=== PATIENT | female | born 1955 | race Caucasian/White ===

== ENCOUNTER → 2016-04-12 | Outpatient (CLI) | payer BC, OTHER ==
[2015-11-24 08:55] VITALS: BP 121/70
[~2016-04-12] MED LIST: BREO ELLIPTA 11 EACH IH; CARV3.122 PO; CELE200C PO; CHLO12TA2 PO; DOXY100C2 PO; DULO60CA6 PO; FERR325T58 PO; GABA-586; HYDR-2678 PO; LISI-338 PO; LORA0.5T PO; LORA0.5T96 PO; OMEG1CAP6 PO; OMEP40CA5 PO; ONDA4TAB7 PO; OXYC-250; OXYC1TAB7 PO; PANT40TA3 PO; PANT40TA5 PO; POTA10CA PO; PRED1TAB3 PO; RIVA10TA PO
--- NOTE | 2016-04-12 11:20 | RAD ---
Exam performed: Nuclear medicine PET scan. History: [Right breast cancer, history of lumpectomy. Patient complaining of right shoulder pain radiating to the arm. History of herpes. Abnormal brachial plexus MRI]. Date of service: 04/12/16. Comparison: CT chest with contrast from 11/07/15 and MRI brachial plexus from 12-27. Technique: Patient was injected 12.16 mCi of F-18 FDG intravenously and delayed whole-body images are obtainedCorresponding including both lower extremities. Noncontrast enhanced images are obtained for the purposes of attenuation correction and anatomical correlation. Patient's fasting blood glucose level at the time of injection measures 96.0 mg/dL. Findings: No hypermetabolic activity seen in the brain or neck. Abnormal lymph nodes were seen in the right neck anterior to the proximal right superior artery, however these are not redemonstrated on current exam. No abnormal hypermetabolic lymph nodes are seen in the neck, axilla, hilum or mediastinum. A small partially calcified 1.3 cm nodule in the right middle lobe demonstrates no abnormal hypermetabolic activity. The maximum SUV value in this region measures less than 1.0. The remainder lungs are essentially clear. No abnormal hypermetabolic activity seen in the abdomen or pelvis. Physiological activity in the colon with symmetric excretion via both kidneys. No hypermetabolic retroperitoneal or mesenteric lymph nodes are identified. No abnormal hypermetabolic activity seen in both lower extremities. Symmetrically linear activity seen in both calf region is physiological intramuscular activity. Impression: No abnormal hypermetabolic activity seen in the brain, neck, chest abdomen or pelvis or bilateral lower extremities. Previously seen enlarged lymph nodes along the proximal right subclavian artery appears less prominent and more likely reactive/inflammatory. 1.3 cm probably partially calcified nodule does not demonstrate any hypermetabolic activity
== END | disposition home or self-care (01) ==
LOC: PETSC 07:31
PROVIDERS: ATTEND Psychiatry & Neurology Neurology with Special Qualifications in Child Neurology
DX: B02.29 Other postherpetic nervous system involvement (principal)
CPT/HCPCS: 78815; A9552

== ENCOUNTER → 2016-04-30 | Outpatient (CLI) | payer BC, OTHER ==
[2015-11-24 08:55] VITALS: BP 121/70
--- NOTE | 2016-04-30 17:23 | KCIC ---
Examination: DEXA scan. HISTORY History of postmenopausal, hormonal therapy. COMPARISON None available. FINDINGS The bony density in the lumbar spine is 1.187 grams per centimeter square with a T-score of 1.3 and Z-score of 2.7. The bone mineral density in the left femoral neck is 0.822 grams per centimeters square with a T-score of -1.0 and a Z-score of -0.1. IMPRESSION The bone mineral density in the left femoral neck is osteopenia. Electronically signed by: Sudhakar Menchaca (Apr 30, 2016 17:21:49)
== END | disposition home or self-care (01) ==
LOC: KCIC DEXA 14:06
PROVIDERS: ATTEND Internal Medicine Hematology & Oncology
DX: Z78.0 Asymptomatic menopausal state (principal); M85.80 Other specified disorders of bone density and structure, unspecified site
CPT/HCPCS: 77080

== ENCOUNTER → 2016-06-11 | Outpatient (CLI) | payer BC, OTHER ==
[2015-11-24 08:55] VITALS: BP 121/70
[~2016-06-11] MED LIST changes: +BUPIVACAINE MPF 0.25% 10 ML VIAL. ONE; +IOHEXOL 180 MG/ML 10 ML VIAL. ONE; +OXYC10TA32 PO; +TRAZ50TA15 PO; +methylPREDNISolone ACETATE 40 MG/ML VIAL. ONE; +methylPREDNISolone ACETATE 80 MG/ML VIAL. ONE
--- NOTE | 2016-06-12 03:25 | PAIN ---
DATE OF SERVICE: 06/11/2016 INITIAL CONSULTATION FOR PAIN CLINIC CHIEF COMPLAINT: Right upper extremity pain. HISTORY OF PRESENT ILLNESS: This is a 60-year-old female who presents with history of pain status post a shingles outbreak in 09/10/2015. The patient was diagnosed with breast cancer at that time and underwent mastectomy with axillary node dissection radical mastectomy ____. She reports that the rash has never completely cleared up and is not sure how it was treated initially about 10 months ago. The patient reports that she still has a rash that occurs occasionally with some blistering of the skin, mostly in the posterior aspect of the scapula and into the right upper extremity with pain throughout the posterior aspect of the arm, lateral arm to the elbow on the right side only. The patient reports tingling and shooting pain down into the arm and hand including all the fingers with a tingling sensation overall the fingers, which has a numbness and a vibratory sensation as well. The patient reports no loss of motor function of her right upper extremity, but significant pain, initially was difficult to even for light touch with clothing and so forth, but now is ____ sleeping most of the night, but awakens her from sleep sometimes 3-4 times, can be very painful on the back of the shoulder blade, mostly from the pain with sleeping. The patient reports no symptoms on the left side. No new rash, no new changes. The patient did have MRI scan of her cervical spine showing some degenerative disk disease at C5-C6 and C6-C7 and some mild spondylosis as well, but no other significant pathology in the cervical spine. The patient has seen a neurologist and still follows up with her oncologist as well, who believes she is in remission from cancer at this point. The patient reports the pain is sharp, stabbing and intermittent in intensity, but always present, changes during the day, worse with activity, worse with changing positions, it is radiating into the right arm and hand again with some tingling in the fingers as described. The patient is not having any other therapies at this time. No physical therapies or other treatments. She is taking gabapentin at 600 mg 3 times a day and also OxyContin and oxycodone. She reports the oxycodone helps 7.5 mg immediate release, but the OxyContin is not helping the pain. The patient has also tried Advil and Tylenol, which have not helped either. PAST MEDICAL HISTORY: Significant for breast cancer with chemotherapy in February 2015, status post radical mastectomy on the right, quit smoking 5 years ago, history of gastric ulcers, cardiomyopathy from the chemotherapy. PAST SURGICAL SURGERY: Other surgeries include x 2, sinus surgery, mastectomy and right segmental reconstruction on 01/2016. CURRENT MEDICATIONS: Include gabapentin, OxyContin, oxycodone, pantoprazole, and finasteride. ALLERGIES: The patient has no known drug allergies. FAMILY HISTORY: Significant for cancers and myocardial infarction in her father. SOCIAL HISTORY: The patient does drink alcohol about 3 drinks daily, does not smoke, quit about 5 years ago. She is , lives with her spouse, lives locally. REVIEW OF SYSTEMS: The patient's review of systems is positive for those items mentioned in history of present illness. All systems reviewed and otherwise negative. It is complete, full and well documented on the patient's chart. PHYSICAL EXAMINATION: VITAL SIGNS: The patient's blood pressure is 136/74, pulse 70, respirations 16, temperature 97.9 degrees Fahrenheit. Height is 5 feet, weight is 127 pounds. GENERAL: The patient is awake, alert, oriented, appropriate, very pleasant demeanor. HEENT: Shows normocephalic, atraumatic. Extraocular movements are intact and symmetrical. Oral cavity, mucous membranes are moist and pink. Dentition is intact. NECK: Shows anterior throat supple without palpable lymphadenopathy noted. Swallow reflex is symmetrical. Neck shows full rotational motion of the cervical spine without difficulty including extension and flexion. Right and left lateral rotation past 45 degrees closer to 90 degrees bilaterally without difficulty or pain reported. CHEST: Shows normal with inspection. Previously well-healed surgical scarring is noted in the right. LUNGS: Breath sounds clear to auscultation bilaterally. HEART: Shows S1 and S2 clear. ABDOMEN: Soft, obese, nontender, and nondistended. No palpable organomegaly is noted. No rebound or guarding demonstrated. MUSCULOSKELETAL: Back shows spine grossly in midline. Normal appearing cervical and lordotic curvature, thoracic kyphotic curvature, and lumbar lordotic curvature. No previous scars noted. With inspection of the skin over the right scapular in the suprascapular region, there is some hypopigmentation in the area of the trapezius as well as the suprascapular region with 2-3 areas scabbed lesions, which she reports she has been scratching on the area of the suprascapular region on the right. No active lesions, no active blisters. No active shingles or rash is determined. There are some hypopigmentation on the lateral deltoid, posterior deltoid as well as over the area of the trapezius and the triceps on the right side, but not below the elbow. Again, no erythema, no clubbing, no cyanosis. Upper extremities are otherwise warm and dry to touch, equal in color and appearance. Good capillary refill throughout the upper arm and shoulder on the right and left. Peripheral pulses are 2+ in the radial distribution. Motor exam is strong with 5/5 operations lead strength, biceps and triceps flexion are strong and intact and no loss of strength bilaterally. Shoulder shrug is strong and intact as is abduction of shoulder to 90 degrees without difficulty and without pain reported with resistance. Sharp and dull discrimination is intact over the area of the suprascapular and infrascapular region on the right and left as well as over the anterior, posterior and lateral deltoid, biceps and triceps region on the right side as well as the left is intact without deficits. IMPRESSION: 1. This is a 60-year-old female with history of approximately 10 months shingles outbreak in the right upper extremity with confounding subsequent findings of breast cancer and the patient is undergoing chemotherapy at that time with some peripheral neuropathy from that as well now. 2. MRI scan of cervical spine as noted. PLAN: Options were discussed with the patient and the patient's spouse who accompanies her to visit today including conservative medical management, physical therapy techniques as well as interventional techniques and she would like to try anything possible that may help the pain. We discussed the cervical epidural steroid injection using dilute local anesthetic as well as steroid medication. She would like to proceed with this. Risks were discussed including but not limited to bleeding, infection, possibility of epidural hematoma and subsequent neurologic compromise, dural puncture, headaches, spinal cord and/or nerve damage, side effects of steroid medication and poor results regarding pain control. The patient understands and wishes to proceed. The patient will return to clinic in approximately 2 weeks for followup. She was counseled on return appointment, activity level and side effects to be aware of. DIAGNOSIS: Post-herpetic neuralgia, right cervical distribution. PROCEDURE: Cervical epidural steroid injection using local anesthetic under sterile prep and drape with C-arm fluoroscopic guidance at the C6-C7 level, translaminar approach. MEDICATIONS INJECTED: 120 mg Depo-Medrol plus 5 mL of normal saline and 2.5 mL of 0.25% bupivacaine as well as 2 mL of Isovue for contrast. CONDITION AT DISCHARGE: Stable. The patient tolerated procedure well, had no complications. Other recommendations are to increase the patient's Neurontin to 900 mg t.i.d. as tolerated. Also we will trazodone at 50 mg at bedtime with instructions, side effects to be aware of discussed with the medications. CEDRIC HUSSEIN MD DR: NEHEMIAS/kiley JOB#: [id number] / [id number] CLAUDIA Farrar MD
== END | disposition home or self-care (01) ==
LOC: PNCL 13:05
PROVIDERS: ATTEND Anesthesiology
DX: M47.22 Other spondylosis with radiculopathy, cervical region (principal); B02.29 Other postherpetic nervous system involvement; F41.9 Anxiety disorder, unspecified; K21.9 Gastro-esophageal reflux disease without esophagitis; Z85.3 Personal history of malignant neoplasm of breast; Z87.891 Personal history of nicotine dependence; Z87.11 Personal history of peptic ulcer disease; Z72.89 Other problems related to lifestyle
CPT/HCPCS: 62321; J1030; J1040; J3490

== ENCOUNTER → 2016-06-25 | Outpatient (CLI) | payer BC, OTHER ==
[2015-11-24 08:55] VITALS: BP 121/70
[~2016-06-25] MED LIST changes: -BUPIVACAINE MPF 0.25% 10 ML VIAL. ONE; -POTA10CA PO; +POTASSIUM CHLO10 MEQ PO
--- NOTE | 2016-06-25 10:06 | PAIN ---
DATE OF SERVICE: 06/25/2016 PROGRESS NOTE FOR PAIN CLINIC DIAGNOSES: Cervical radiculopathy with post-herpetic neuralgia, right cervical distribution. HISTORY OF PRESENT ILLNESS: The patient is a 60-year-old female, who returns for followup status post cervical epidural steroid injection x 1. The patient reports about 25% improvement initially the arm is doing much better on the right side, but still has significant pain in the posterior aspect of the right shoulder and the shoulder blade near the trapezius and close to the midline, where she has had some rash, discoloration from her herpes zoster. The patient reports her pain is 6 on a scale of 10, it is fairly constant, sharp at times stabbing and can be severe at times as well. Right side, mostly posterior shoulder blade in the upper aspect on the right. Again, arm doing better, but still significant pain in shoulder. The patient reports no new motor or sensory deficits, no new other complaints. PHYSICAL EXAMINATION: VITAL SIGNS: Today, the patient's blood pressure is 150/98, pulse is 75, respirations 20, temperature is 98.2 degrees Fahrenheit, weight is 123 pounds, height is 5 feet 0 inches. GENERAL: The patient is awake, alert, oriented, appropriate, very pleasant demeanor. HEENT: Head shows normocephalic, atraumatic. Extraocular movements are intact and symmetrical. Oral cavity shows mucous membranes moist and pink. Dentition is intact. NECK: Shows anterior throat supple without palpable lymphadenopathy noted. Swallow reflex is symmetrical. CHEST: Shows normal on inspection. Breath sounds clear to auscultation bilaterally. HEART: Shows S1 and S2 clear. ABDOMEN: Soft, nontender, nondistended. No palpable organomegaly is noted. No rebound or guarding demonstrated. BACK: Shows spine grossly midline. There is some discoloration over the right posterior scapula from previous shingles rash, but very tender even with light touch. There is some minor allodynia over that region as well. EXTREMITIES: Upper extremities showed deep tendon reflexes 2+ in the biceps and triceps tendons. Motor exam is strong with circulation representative strength rated at 5/5 as is biceps and triceps flexion. Options were discussed with the patient. We will proceed with a second cervical epidural steroid injection today with fluoroscopic guidance. Risks were again discussed including, but not limited to bleeding, infection, possibility of epidural hematoma and subsequent neurological compromise, dural puncture, headaches, spinal cord and/or nerve damage, side effects of steroid medication and poor results regarding pain control. The patient understands and wishes to proceed. The patient will return to the clinic in approximately 2 weeks for followup, was counseled on return appointment, activity level and side effects to be aware of. DIAGNOSES: post-herpetic neuralgia, right cervical distribution. PROCEDURE: Cervical epidural steroid injection in translaminar approach at the C6-C7 level using C-arm fluoroscopic guidance under sterile prep and drape using local anesthetic. MEDICATION INJECTED: Depo-Medrol 80 mg plus 5 mL of normal saline and 2 mL of Isovue for contrast. CONDITION AT DISCHARGE: Stable. The patient tolerated procedure well, had no complications. CEDRIC HUSSEIN MD DR: NEHEMIAS/kiley JOB#: [id number] / [id number]
== END | disposition home or self-care (01) ==
LOC: PNCL 07:33
PROVIDERS: ATTEND Anesthesiology
DX: G54.2 Cervical root disorders, not elsewhere classified (principal); K21.9 Gastro-esophageal reflux disease without esophagitis; F41.9 Anxiety disorder, unspecified; Z85.3 Personal history of malignant neoplasm of breast; Z72.89 Other problems related to lifestyle
CPT/HCPCS: 62321; 99214; J1030; J1040

== ENCOUNTER → 2016-07-16 | Outpatient (CLI) | payer BC, OTHER ==
[2015-11-24 08:55] VITALS: BP 121/70
--- NOTE | 2016-07-17 00:11 | PAIN ---
DATE OF SERVICE: 07/16/2016 ____ DIAGNOSIS: Post-herpetic neuralgia, right cervical distribution. HISTORY OF PRESENT ILLNESS: The patient is a 60-year-old female who returns for followup status post cervical epidural steroid injections x 2. The patient reports approximately 75% improvement in the right arm and neck. The patient reports her pain is a 3 on a scale of 10 now. She has been increasing her activity with greater comfort and ease and greater ability, also sleeping well at night. The pain is no longer awakening her from sleep. The patient reports the tingling and stinging pain in her right hand is completely gone. She is quite pleased with her progress thus far. The patient reports no new motor or sensory deficits, no new complaints. PHYSICAL EXAMINATION: VITAL SIGNS: Today, the patient's blood pressure is 163/85, pulse 85, respirations are 18, temperature is 97.9 degrees Fahrenheit. Height is 5 feet 5 inches, weight is 126 pounds. GENERAL: The patient is awake, alert, oriented, appropriate, very pleasant demeanor. HEENT: Shows normocephalic and atraumatic. Extraocular movements are intact and symmetrical. Oral cavity: Mucous membranes moist and pink. Dentition is intact. NECK: Shows anterior throat supple without palpable lymphadenopathy noted. Swallow reflex is symmetrical. CHEST: Shows normal on inspection. Breath sounds are clear to auscultation bilaterally. HEART: Shows S1 and S2 clear. No murmurs auscultated. ABDOMEN: Soft, nontender and nondistended. No palpable organomegaly. There is no rebound or guarding demonstrated. BACK: Shows spine grossly midline. Neck shows full rotational motion of the cervical spine both laterally greater than 45 degrees right and left as well as extension and forward flexion without difficulty. EXTREMITIES: Upper extremities show deep tendon reflexes at 2+ in the biceps and triceps tendons. Motor exam is strong with director of program management strength rated at 5/5 and equal and symmetrical. Options were discussed with the patient and the patient's old chart was reviewed as her current medication regimen updated. Current review of systems updated today as well. We will proceed with a third cervical epidural steroid injection today with fluoroscopic guidance. Risks were again discussed including, but not limited to bleeding, infection, possibility of epidural hematoma, subsequent neurologic compromise, dural puncture, headaches, spinal cord and/or nerve damage, side effects of steroid medication and poor results regarding pain control. The patient understands and wishes to proceed. The patient will return to clinic in approximately 2 weeks for followup. She was counseled on return appointment, activity level and side effects to be aware of. DIAGNOSIS: Post-herpetic neuralgia, right cervical distribution. PROCEDURE: Cervical epidural steroid injection using C-arm fluoroscopic guidance under sterile prep and drape using local anesthetic. MEDICATION INJECTED: 120 mg Depo-Medrol plus 5 mL preservative-free normal saline and 2 mL of Isovue contrast. CONDITION AT DISCHARGE: Stable. The patient tolerated the procedure well, had no complications. CEDRIC HUSSEIN MD DR: NEHEMIAS/kiley JOB#: [id number] / [id number]
== END | disposition home or self-care (01) ==
LOC: PNCL 07:57
PROVIDERS: ATTEND Anesthesiology
DX: M54.12 Radiculopathy, cervical region (principal); B02.29 Other postherpetic nervous system involvement; K21.9 Gastro-esophageal reflux disease without esophagitis; F41.9 Anxiety disorder, unspecified; Z72.89 Other problems related to lifestyle; Z86.69 Personal history of other diseases of the nervous system and sense organs
CPT/HCPCS: 62321; J1030; J1040

== ENCOUNTER → 2016-12-03 | Outpatient (CLI) | payer BC, OTHER ==
[2015-11-24 08:55] VITALS: BP 121/70
[~2016-12-03] MED LIST changes: +ANAS1TAB PO; +DULO20CA PO; -IOHEXOL 180 MG/ML 10 ML VIAL. ONE; +LISI10TA2 PO; -OXYC-250; +OXYC-328; -OXYC10TA32 PO; +OXYC10TA45 PO; +PREG150C PO; -methylPREDNISolone ACETATE 40 MG/ML VIAL. ONE; -methylPREDNISolone ACETATE 80 MG/ML VIAL. ONE
--- NOTE | 2016-12-03 12:20 | PAIN ---
DATE OF SERVICE: 12/03/2016 DATE OF SERVICE: 12/03/2016 DIAGNOSES: 1. Cervical degenerative disk disease with cervical radiculopathy. 2. History of post-herpetic neuralgia, cervical distribution as well. HISTORY OF PRESENT ILLNESS: The patient is a 61-year-old female who returns for followup status post cervical epidural steroid injections x 3, most recently seen on 07/18/2016. The patient did very well with these with about 75%-80% improvement. Pain returning now in the right upper extremity as it was previously. No new outbreak of shingles or rash. The patient with significant degenerative disk disease at the C5-C6 and C6-C7 levels from MRI scan in 12/2015. The patient reports the pain is returning now in the right upper extremity significantly into the shoulder and arm with radiation into the hands and tingling and numbness in the right hand and fingers, especially in the thumb and first finger. The patient reports it can be sharp, tingling, severe at times, worse at night, occasionally, but mostly does not awaken her from sleep. She is wearing a brace on her wrist, which seems to help during the day when she is working. The patient reports it is 7 on a scale of 10 at its worst, is a 5 on average and a 5 at its least, and is a 5 today. The patient reports no new motor or sensory deficits, no new bowel or bladder incontinence or other complaints. PAST MEDICAL HISTORY: Significant for breast cancer with chemotherapy, quit smoking 5 years ago, gastric ulcers, cardiomyopathy. PAST SURGICAL HISTORY: Previous right mastectomy for cancer, also , sinus surgery and segmental reconstruction on the right. CURRENT MEDICATIONS: Well documented and updated on the patient's chart today. ALLERGIES: The patient has no known drug allergies. FAMILY HISTORY: Significant for myocardial infarction and cancers. SOCIAL HISTORY: The patient drinks alcohol about 3 drinks a day, quit smoking 5 years ago, , lives with her spouse and lives locally in [place], [place]. REVIEW OF SYSTEMS: The patient's review of systems is positive for those items mentioned in history of present illness. All systems reviewed and are otherwise negative as well documented on the patient's chart. PHYSICAL EXAMINATION: VITAL SIGNS: The patient's blood pressure is 116/77, pulse is 78, respirations are 18, temperature 98.2 degrees Fahrenheit, height is 5 feet 5 inches, weight is 130 pounds. GENERAL: The patient is awake, alert, oriented, appropriate, very pleasant demeanor. HEENT: Shows normocephalic, atraumatic. Extraocular movements are intact and symmetrical. Oral cavity shows mucous membranes moist and pink. Dentition is intact. NECK: Shows anterior throat supple without palpable lymphadenopathy noted. Swallow reflex is symmetrical. CHEST: Shows normal on inspection. Breath sounds are clear to auscultation bilaterally. Previous surgery is noted on the right from mastectomy. HEART: Shows S1 and S2 clear. ABDOMEN: Soft, nontender, nondistended. No palpable organomegaly, no rebound or guarding demonstrated. BACK: Shows spine grossly in midline. Normal appearing cervical lordotic curvature, thoracic kyphotic curvature, and lumbar lordotic curvature. Cervical paraspinous musculature shows symmetrical on inspection, with palpation shows some [id number] tenderness in the base of the neck on the right side in the superior medial trapezius as well as the inferior cervical paraspinous muscles, but only diffusely tender without significant radiation. No rashes. No lesions are noted. No hyperpigmentation. The patient shows full rotational motion of cervical spine, both laterally as well as extension and flexion without significant pain or difficulty. Upper extremities show deep tendon reflexes 2+ in the biceps and triceps tendons. Motor exam is strong with corporate giving manager strength rated at 5/5 as is biceps and triceps flexion with some mild tenderness with the anterior deltoid and bicep on the right with flexion and extension. Shoulder shrug is strong and intact, but with pain reported, but without loss of strength on the right side in the base of the neck and shoulder only. Peripheral pulses are 2+ radial distribution. No peripheral edema is noted. No clubbing, no cyanosis. PLAN: Options were discussed with the patient and the patient's old chart was reviewed as her current medication regimen updated. Current review of systems updated today as noted. We will proceed with a Medrol Dosepak today with instructions, side effects to be aware of discussed with the medication. The patient will return to clinic in approximately 1 week for a cervical epidural steroid injection. It has not quite been 6 months since her first injection of her last series, but she is getting close to that. She will be eligible in December. We will try Medrol Dosepak in the meantime. The patient will return to clinic in approximately 1 week. We will plan on cervical epidural steroid injection at that time. CEDRIC HUSSEIN MD DR: NEHEMIAS/kiley JOB#: [id number] / [id number]
== END | disposition home or self-care (01) ==
LOC: PNCL 08:43
PROVIDERS: ATTEND Anesthesiology
DX: M50.10 Cervical disc disorder with radiculopathy, unspecified cervical region (principal); B02.29 Other postherpetic nervous system involvement; R20.0 Anesthesia of skin; Z85.3 Personal history of malignant neoplasm of breast; Z87.891 Personal history of nicotine dependence; Z90.11 Acquired absence of right breast and nipple
CPT/HCPCS: 99212

== ENCOUNTER → 2017-08-05 | Outpatient (CLI) | payer BC | END | disposition home or self-care (01) | LOC: PNCL 07:54 | DX: M50.10 Cervical disc disorder with radiculopathy, unspecified cervical region (principal); B02.29 Other postherpetic nervous system involvement; E87.6 Hypokalemia; K21.9 Gastro-esophageal reflux disease without esophagitis | CPT/HCPCS: 99212 ==

== ENCOUNTER 2021-03-14 17:00 | Inpatient (IN) | payer BC, OTHER ==
[~2021-03-14] VITALS: Ht 165.1 cm; Wt 70.0 kg
[~2021-03-14 17:00] MED LIST changes: +CARV3.1210 PO; -CARV3.122 PO; -DOXY100C2 PO; +DOXY100C3 PO; -DULO60CA6 PO; +DULO60CA7 PO; -GABA-586; +GABA300C18; -LISI-338 PO; +LISI10TA16 PO; -LISI10TA2 PO; +LISI5TAB15 PO; -OMEP40CA5 PO; +OMEP40CA7 PO; -OXYC-328; -OXYC10TA45 PO; +OXYC10TA46 PO; +OXYC1TAB22; -PANT40TA3 PO; -PANT40TA5 PO; +PANT40TA77 PO; +POTA10TA12 PO; -POTASSIUM CHLO10 MEQ PO; +TRAZ-118 PO; -TRAZ50TA15 PO
[2021-03-14] MEDS ORDERED: PANTOPRAZOLE IV PUSH 40 MG VIAL. IVP ONE (17:30)
[2021-03-14] MEDS ORDERED: cefTRIAXone IV Push 1 GM VIAL. IVP ONE (17:30)
[2021-03-14 17:32] LABS: BASO % 1 % (0-3); EOS % 0 % (0-3); HEMATOCRIT 16.3 % (36.0-47.0); LYMPH # 1.7 x10^3/uL (1.0-4.8); LYMPH % 22 % (24-48); MEAN CORPUSCULAR HEMOGLOBIN 31 pg (25-35); MEAN CORPUSCULAR HGB CONC 33 g/dL (31-37); MEAN CORPUSCULAR VOLUME 95 fL (79-100); MONO # 0.3 x10^3/uL (0.0-1.1); MONO % 4 % (0-9); NEUT % 74 % (31-73); PLATELET COUNT 388 x10^3/uL (140-400); RED BLOOD COUNT 1.72 x10^6/uL (3.50-5.40); RED CELL DISTRIBUTION WIDTH 13.8 % (11.5-14.5); WHITE BLOOD COUNT 8.1 x10^3/uL (4.0-11.0)
--- NOTE | 2021-03-14 17:34 | ED.ADGEN ---
Past Medical History Past Medical History: Cancer Additional Past Medical Histor: BREAST CANCER,( WITH CURRENT CHEMOTHERAPY) ULCERS Past Surgical History: , Other Additional Past Surgical Histo: bilateral masectomy Smoking Status: Never Smoker Alcohol Use: None Drug Use: None General Adult EDM: Chief Complaint: RECTAL BLEED HPI: HPI: Patient is a 65 year old female coming in from home via EMS for GI bleeding. On EMS arrival patient was hypotensive with a blood pressure of 66/50. History per patient's was that about 5 hours prior to arrival she had an episode of coffee-ground emesis. Patient that is prior to arrival calling EMS was try to go to the bathroom where she had a syncopal episode with convulsions (has been lowered to the ground she did not hit her head). She had a large bowel movement consisting of dark red blood. States she has been complaining of right upper quadrant abdominal pain for the past 4 to 5 days. Was seen by her primary care provider 2 days ago and then 4 days ago. Patient has an appointment for tomorrow morning and she was initially trying to wait it out. Patient states she has a history of prior bleeding ulcer 10 years ago. States she takes omeprazole. Review of Systems: Review of Systems: All other systems within normal limits except for as noted in the HPI Current Medications: Current Medications Medications (Trade) Dose Ordered Sig/Jn Start Time Stop Time Status Last Admin Dose Admin Acetaminophen (Tylenol) 650 mg PRN Q4HRS PRN 03/14/21 18:15 03/15/21 18:14 Ceftriaxone Sodium (Rocephin) 1 gm 1X ONCE 03/14/21 17:30 03/14/21 17:31 DC 03/14/21 17:30 1 GM Info (CONTRAST GIVEN -- Rx MONITORING) 1 each PRN DAILY PRN 03/14/21 18:00 03/16/21 17:59 Iohexol (Omnipaque 300 Mg/ml) 75 ml 1X ONCE 03/14/21 18:00 03/14/21 18:01 DC Morphine Sulfate (Morphine Sulfate) 4 mg PRN Q2HR PRN 03/14/21 18:15 03/15/21 18:14 Ondansetron HCl (Zofran) 4 mg PRN Q8HRS PRN 03/14/21 18:15 03/15/21 18:14 Pantoprazole Sodium (PROTONIX VIAL for IV PUSH) 40 mg 1X ONCE 03/14/21 17:30 03/14/21 17:31 DC 03/14/21 17:30 40 MG Pantoprazole Sodium 80 mg/ Sodium Chloride 100 ml @ 10 mls/hr Q10H 03/14/21 18:00 03/14/21 17:41 10 MLS/HR Sodium Chloride 1,000 ml @ 100 mls/hr Q10H 03/14/21 18:15 03/15/21 18:14 Allergies: Allergies: Allergies Coded Allergies Type Severity Reaction Last Updated Verified No Known Drug Allergies 03/14/21 No Physical Exam: PE: Constitutional: Well developed, well nourished, no acute distress, non-toxic appearance. [] HENT: Normocephalic, atraumatic, bilateral external ears normal, nose normal. [] Eyes: PERRLA, conjunctiva normal, no discharge. [] Neck: No rigidity, supple, no stridor. [] Cardiovascular: Tachycardic, regular rhythm, brisk cap refill [] Lungs & Thorax: Non labored symmetric respirations, no tachypnea or respiratory distress [] Abdomen: Soft, nondistended. Skin: Warm, dry, no erythema, no rash. Pallor and diaphoretic [] Back: Unremarkable Extremities: No deformities, range of motion grossly intact, no lower extremity edema [] Neurologic: Alert and oriented X 3, no focal deficits noted. [] Psychologic: Affect normal, judgement normal, mood normal. [] Current Patient Data: Labs: Laboratory Tests Test 03/14/21 17:05 03/14/21 17:41 White Blood Count 8.1 x10^3/uL (4.0-11.0) Red Blood Count 1.72 x10^6/uL (3.50-5.40) L Hemoglobin 5.4 g/dL (12.0-15.5) *L Hematocrit 16.3 % (36.0-47.0) L Mean Corpuscular Volume 95 fL (79-100) Mean Corpuscular Hemoglobin 31 pg (25-35) Mean Corpuscular Hemoglobin Concent 33 g/dL (31-37) Red Cell Distribution Width 13.8 % (11.5-14.5) Platelet Count 388 x10^3/uL (140-400) Neutrophils (%) (Auto) 74 % (31-73) H Lymphocytes (%) (Auto) 22 % (24-48) L Monocytes (%) (Auto) 4 % (0-9) Eosinophils (%) (Auto) 0 % (0-3) Basophils (%) (Auto) 1 % (0-3) Neutrophils # (Auto) 6.0 x10^3/uL (1.8-7.7) Lymphocytes # (Auto) 1.7 x10^3/uL (1.0-4.8) Monocytes # (Auto) 0.3 x10^3/uL (0.0-1.1) Eosinophils # (Auto) 0.0 x10^3/uL (0.0-0.7) Basophils # (Auto) 0.0 x10^3/uL (0.0-0.2) Prothrombin Time 16.3 SEC (11.7-14.0) H Prothrombin Time INR 1.3 (0.8-1.1) H Sodium Level 145 mmol/L (136-145) Potassium Level 3.7 mmol/L (3.5-5.1) Chloride Level 107 mmol/L (98-107) Carbon Dioxide Level 15 mmol/L (21-32) L Anion Gap 23 (6-14) H Blood Urea Nitrogen 62 mg/dL (7-20) H Creatinine 1.2 mg/dL (0.6-1.0) H Estimated GFR (Cockcroft-Gault) 45.2 BUN/Creatinine Ratio 52 (6-20) H Glucose Level 281 mg/dL (70-99) H Calcium Level 8.4 mg/dL (8.5-10.1) L Magnesium Level 1.9 mg/dL (1.8-2.4) Total Bilirubin 0.1 mg/dL (0.2-1.0) L Aspartate Amino Transferase (AST) 9 U/L (15-37) L Alanine Aminotransferase (ALT) 17 U/L (14-59) Alkaline Phosphatase 21 U/L (46-116) L Troponin I High Sensitivity 45 ng/L (4-50) BF-[id number]-W-Type Natriuretic Peptide 572 pg/mL (0-124) H Total Protein 4.9 g/dL (6.4-8.2) L Albumin 2.2 g/dL (3.4-5.0) L Albumin/Globulin Ratio 0.8 (1.0-1.7) L Lipase 142 U/L (73-393) Ethyl Alcohol Level < 10 mg/dL (0-10) Stool Occult Blood Positive (NEG) Laboratory Tests 03/14/21 17:05 Laboratory Tests 03/14/21 17:05 Vital Signs: Vital Signs Date Time Temp Pulse Resp B/P (MAP) Pulse Ox O2 Delivery O2 Flow Rate FiO2 03/14/21 17:54 101 17 115/58 (77) 100 Room Air 03/14/21 17:40 97.8 97.8 EKG: EKG: Sinus tachycardia, heart rate 100 100s minute, no ST elevation or depression, no ectopy. No intervals. [] Heart Score: C/O Chest Pain: No Risk Factors: Risk Factors: DM, Current or recent (<one month) smoker, HTN, HLP, family hist ory of CAD, obesity. Risk Scores: Score 0 - 3: 2.5% MACE over next 6 weeks - Discharge Home Score 4 - 6: 20.3% MACE over next 6 weeks - Admit for Clinical Observation Score 7 - 10: 72.7% MACE over next 6 weeks - Early Invasive Strategies Radiology/Procedures: Radiology/Procedures: [] Course & Med Decision Making: Course & Med Decision Making Pertinent Labs and Imaging studies reviewed. (See chart for details) Patient emergently transfused uncrossed blood. Consults placed to patient's primary care provider Dr. Blandon, and baking powder mixer Dr. Gomez. Patient's vital signs stabilized with transfusions and fluids. Patient admitted to the ICU [] Total critical care time: 60 The time involved in the performance of separately reportable/billable procedures was not counted toward critical care time. Due to a high probability of clinically significant, life-threatening deterioration the patient required a high level of care to intervene emergently and I personally spent this critical time directly and personally managing the patient. The critical care time included obtaining a history, examination of the patient, assessment of vital signs, ordering and review of studies, arranging urgent treatment with development of a management plan, evaluation of patient's response to treatment, frequent reassessment, and discussions with other providers and/or family members. Riky Disclaimer: Riky Disclaimer: This electronic medical record was generated, in whole or in part, using a voice recognition dictation system. Departure Departure Impression: Primary Impression: GI bleeding Disposition: ADMITTED INPATIENT Admitting Physician: Richy Blandon Condition: CRITICAL Referrals: RICHY BLANDON MD (PCP) ARLENE JAEGER MD Mar 14, 2021 17:34
[2021-03-14 17:35] LABS: HEMOGLOBIN 5.4 g/dL (12.0-15.5)
[2021-03-14 17:38] LABS: PROTHROMBIN TIME PATIENT 16.3 SEC (11.7-14.0)
[2021-03-14 17:39] LABS: CALCIUM 8.4 mg/dL (8.5-10.1); CREATININE 1.2 mg/dL (0.6-1.0); GFR 45.2; POTASSIUM 3.7 mmol/L (3.5-5.1)
[2021-03-14] MEDS: PANTOPRAZOLE SODIUM IV DRIP 80 MG in IV NORMAL SALINE 100ML 100 ML IV SCH (17:41)
[2021-03-14 17:45] LABS: ALBUMIN 2.2 g/dL (3.4-5.0); ALBUMIN/GLOBULIN RATIO 0.8 (1.0-1.7); MAGNESIUM 1.9 mg/dL (1.8-2.4); TOTAL BILIRUBIN 0.1 mg/dL (0.2-1.0); TOTAL PROTEIN 4.9 g/dL (6.4-8.2)
[2021-03-14 17:56] LABS: FECAL OB PT POSITIVE (NEG)
[2021-03-14] MEDS ORDERED: CONTRAST GIVEN. MC PRN ×2 (18:00→18:30)
[2021-03-14] MEDS ORDERED: IOHEXOL 300 MG/ML 100ML VIAL. IV ONE (18:00)
[2021-03-14] MEDS ORDERED: ONDANSETRON PF 4 MG/2 ML VIAL. IVP PRN (18:15)
[2021-03-14] MEDS ORDERED: IV NORMAL SALINE 1000ML BAG 1,000 ML IV ONE ×2 (18:15)
[2021-03-14] MEDS ORDERED: MORPHINE SULFATE 4 MG/ML INJ. IVP PRN (18:15)
[2021-03-14] MEDS ORDERED: ACETAMINOPHEN 325 MG TABLET. PO PRN (18:15)
[2021-03-14] MEDS: IV NORMAL SALINE 1000ML BAG 1,000 ML IV SCH (18:15)
[2021-03-14] MEDS ORDERED: IOHEXOL 350 MG/ML 100 ML VIAL. IV ONE (18:30)
--- NOTE | 2021-03-14 18:36 | RAD ---
Exam: CT of abdomen and pelvis without and with contrast INDICATION: GI bleeding TECHNIQUE: Sequential axial images through the abdomen and pelvis obtained before and after the admin istration of 80 mL of Omni 350 IV contrast. Sagittal and coronal reformatted images were reconstructe d from the axial data and reviewed. Exposure: One or more of the following in the visualized dose reduction techniques were utilized for this examination: 1. Automated exposure control 2. Adjustment of the MA and/or KV according to patient size 3. Use of iterative of reconstructive technique Comparisons: None FINDINGS: Heart size is normal. No pericardial effusion. Visualized lung bases are clear. No pleural effusion. Liver, spleen, gallbladder and adrenals are unremarkable. There is edema predominantly at the pancrea tic head. No pancreatic ductal dilatation. Kidneys a straight symmetric enhancement. No perinephric inflammation or hydronephrosis. No renal or ureteral calculi are identified. Bladder is partially distended and appears thin-walled. Uterus is not enlarged. No abnormal adnexal m ass. Large and small bowel are unremarkable. No abnormal area of arterial extravasation identified intralu minally within the remainder small bowel. Abdominal aorta has normal course and caliber. No enlarged intra-abdominal lymph nodes are identified. No suspicious osseous lesions or acute fractures. IMPRESSION: 1. Findings of acute pancreatitis. 2. No evidence for arterial extravasation identified intraluminally within the bowel. Electronically signed by: Sunil Ortez MD (03/14/2021 6:33 PM) [facility]
[2021-03-14 20:14] VITALS: BP 125/72
[2021-03-14 20:16] VITALS: BP 124/73
[2021-03-14 20:24] VITALS: BP 190/100
[2021-03-14 20:44] LABS: BILIRUBIN,URINE NEGATIVE (NEG); CLARITY,URINE CLEAR; COLOR,URINE YELLOW; NITRITE,URINE NEGATIVE (NEG); PROTEIN,URINE NEGATIVE (NEG-TRACE); UROBILINOGEN,URINE 0.2 mg/dL (0.2 mg/dL)
[2021-03-14] MEDS ORDERED: EPINEPHrine SYRINGE 1 MG/10 ML SYRINGE. ONE (20:49)
[2021-03-14 20:52] LABS: AMPHETAMINE/METHAMPHETAMINE NEG (NEG); BACTERIA,URINE FEW /HPF (0-FEW); BARBITURATES NEG (NEG); BENZODIAZEPINES NEG (NEG); CANNABINOIDS NEG (NEG); COCAINE NEG (NEG); METHADONE NEG (NEG); OPIATES NEG (NEG); PHENCYCLIDINE NEG (NEG)
[2021-03-14] MEDS ORDERED: MIDAZOLAM HCL/PF 5 MG/5 ML VIAL. ONE (21:13)
[2021-03-14] MEDS ORDERED: PROPOFOL 100 ML IV ONE (21:14)
--- NOTE | 2021-03-14 21:17 | PDOC2 ---
CONSULT Date of Consult Date of Consult DATE: 03/14/21 TIME: 21:13 Reason for Consult Reason for Consult: Acute Gi Bleed Past Medical History Cardiovascular: No pertinent hx Pulmonary: No pertinent hx CENTRAL NERVOUS SYSTEM: Other GI: GERD, GI bleed, Peptic Ulcer disease Heme/Onc: Cancer Hepatobiliary: No pertinent hx Psych: Anxiety Musculoskeletal: Other Rheumatologic: No pertinent hx Infectious disease: No pertinent hx Renal/: No pertinent hx Endocrine: No pertinent hx Past Surgical History Past Surgical History: , Other Family History Family History: Cancer, Heart Disease Social History ALCOHOL: occassional Drugs: None Lives: with Family Current Problem List Problem List Problems Medical Problems: (1) GI bleeding Status: Acute Current Medications Current Medications Current Medications Pantoprazole Sodium (PROTONIX VIAL for IV PUSH) 40 mg 1X ONCE IVP Last administered on 03/14/21at 17:30; Start 03/14/21 at 17:30; Stop 03/14/21 at 17:31; Status DC Pantoprazole Sodium 80 mg/ Sodium Chloride 100 ml @ 10 mls/hr Q10H IV Last administered on 03/14/21at 17:41; Start 03/14/21 at 18:00 Ceftriaxone Sodium (Rocephin) 1 gm 1X ONCE IVP Last administered on 03/14/21at 17:30; Start 03/14/21 at 17:30; Stop 03/14/21 at 17:31; Status DC Iohexol (Omnipaque 300 Mg/ml) 75 ml 1X ONCE IV ; Start 03/14/21 at 18:00; Stop 03/14/21 at 18:01; Status DC Info (CONTRAST GIVEN -- Rx MONITORING) 1 each PRN DAILY PRN MC SEE COMMENTS; Start 03/14/21 at 18:00; Stop 03/16/21 at 17:59 Sodium Chloride 1,000 ml @ 1,000 mls/hr 1X ONCE IV Last administered on 03/14/21at 17:10; Start 03/14/21 at 18:15; Stop 03/14/21 at 19:14; Status DC Sodium Chloride 1,000 ml @ 1,000 mls/hr 1X ONCE IV Last administered on 03/14/21at 17:30; Start 03/14/21 at 18:15; Stop 03/14/21 at 19:14; Status DC Ondansetron HCl (Zofran) 4 mg PRN Q8HRS PRN IVP NAUSEA/VOMITING; Start 03/14/21 at 18:15; Stop 03/15/21 at 18:14 Morphine Sulfate (Morphine Sulfate) 4 mg PRN Q2HR PRN IVP PAIN; Start 03/14/21 at 18:15; Stop 03/15/21 at 18:14 Sodium Chloride 1,000 ml @ 100 mls/hr Q10H IV ; Start 03/14/21 at 18:15; Stop 03/15/21 at 18:14 Acetaminophen (Tylenol) 650 mg PRN Q4HRS PRN PO FEVER > 100.3'F; Start 03/14/21 at 18:15; Stop 03/15/21 at 18:14 Iohexol (Omnipaque 350 Mg/ml) 90 ml 1X ONCE IV Last administered on 03/14/21at 18:23; Start 03/14/21 at 18:30; Stop 03/14/21 at 18:31; Status DC Info (CONTRAST GIVEN -- Rx MONITORING) 1 each PRN DAILY PRN MC SEE COMMENTS; Start 03/14/21 at 18:30; Stop 03/16/21 at 18:29 Epinephrine HCl (EPINEPHrine SYRINGE) 1 mg STK-MED ONCE .ROUTE ; Start 03/14/21 at 20:49; Stop 03/14/21 at 20:49; Status DC Active Scripts Active Reported Pantoprazole Sodium 40 Mg Tablet. 1 Tab PO DAILY Cymbalta (Duloxetine Hcl) 20 Mg Capsule. Unknown Dose PO DAILY Lisinopril 10 Mg Tablet 1 Tab PO DAILY Anastrozole 1 Mg Tablet 1 Tab PO DAILY Pantoprazole Sodium 40 Mg Tablet. 40 Mg PO DAILY Allergies Allergies: Coded Allergies: No Known Drug Allergies (Unverified , 03/14/21) Vitals VITALS Vital Signs Date Time Temp Pulse Resp B/P (MAP) Pulse Ox O2 Delivery O2 Flow Rate FiO2 03/14/21 20:24 105 20 100 03/14/21 20:16 98.7 124/73 98.7 03/14/21 19:24 Room Air Labs Labs Laboratory Tests Test 03/14/21 17:05 03/14/21 17:41 03/14/21 18:01 03/14/21 19:52 White Blood Count 8.1 x10^3/uL (4.0-11.0) Red Blood Count 1.72 x10^6/uL (3.50-5.40) Hemoglobin 5.4 g/dL (12.0-15.5) Hematocrit 16.3 % (36.0-47.0) Mean Corpuscular Volume 95 fL (79-100) Mean Corpuscular Hemoglobin 31 pg (25-35) Mean Corpuscular Hemoglobin Concent 33 g/dL (31-37) Red Cell Distribution Width 13.8 % (11.5-14.5) Platelet Count 388 x10^3/uL (140-400) Neutrophils (%) (Auto) 74 % (31-73) Lymphocytes (%) (Auto) 22 % (24-48) Monocytes (%) (Auto) 4 % (0-9) Eosinophils (%) (Auto) 0 % (0-3) Basophils (%) (Auto) 1 % (0-3) Neutrophils # (Auto) 6.0 x10^3/uL (1.8-7.7) Lymphocytes # (Auto) 1.7 x10^3/uL (1.0-4.8) Monocytes # (Auto) 0.3 x10^3/uL (0.0-1.1) Eosinophils # (Auto) 0.0 x10^3/uL (0.0-0.7) Basophils # (Auto) 0.0 x10^3/uL (0.0-0.2) Prothrombin Time 16.3 SEC (11.7-14.0) Prothromb Time International Ratio 1.3 (0.8-1.1) Sodium Level 145 mmol/L (136-145) Potassium Level 3.7 mmol/L (3.5-5.1) Chloride Level 107 mmol/L (98-107) Carbon Dioxide Level 15 mmol/L (21-32) Anion Gap 23 (6-14) Blood Urea Nitrogen 62 mg/dL (7-20) Creatinine 1.2 mg/dL (0.6-1.0) Estimated GFR (Cockcroft-Gault) 45.2 BUN/Creatinine Ratio 52 (6-20) Glucose Level 281 mg/dL (70-99) Calcium Level 8.4 mg/dL (8.5-10.1) Magnesium Level 1.9 mg/dL (1.8-2.4) Total Bilirubin 0.1 mg/dL (0.2-1.0) Aspartate Amino Transf (AST/SGOT) 9 U/L (15-37) Alanine Aminotransferase (ALT/SGPT) 17 U/L (14-59) Alkaline Phosphatase 21 U/L (46-116) Troponin I High Sensitivity 45 ng/L (4-50) PG-Mgi-W-Type Natriuretic Peptide 572 pg/mL (0-124) Total Protein 4.9 g/dL (6.4-8.2) Albumin 2.2 g/dL (3.4-5.0) Albumin/Globulin Ratio 0.8 (1.0-1.7) Lipase 142 U/L (73-393) Ethyl Alcohol Level < 10 mg/dL (0-10) Stool Occult Blood Positive (NEG) SARS-CoV-2 Antigen (Rapid) Negative (NEGATIVE) Urine Collection Type Unknown Urine Color Yellow Urine Clarity Clear Urine pH 6.0 (<5.0-8.0) Urine Specific Banks >=1.030 (1.000-1.030) Urine Protein Negative mg/dL (NEG-TRACE) Urine Glucose (UA) Negative mg/dL (NEG) Urine Ketones (Stick) Negative mg/dL (NEG) Urine Blood Large (NEG) Urine Nitrite Negative (NEG) Urine Bilirubin Negative (NEG) Urine Urobilinogen Dipstick 0.2 mg/dL (0.2 mg/dL) Urine Leukocyte Esterase Negative (NEG) Urine RBC 1-2 /HPF (0-2) Urine WBC 1-4 /HPF (0-4) Urine Squamous Epithelial Cells Few /LPF Urine Bacteria Few /HPF (0-FEW) Urine Opiates Screen Neg (NEG) Urine Methadone Screen Neg (NEG) Urine Barbiturates Neg (NEG) Urine Phencyclidine Screen Neg (NEG) Urine Amphetamine/Methamphetamine Neg (NEG) Urine Benzodiazepines Screen Neg (NEG) Urine Cocaine Screen Neg (NEG) Urine Cannabinoids Screen Neg (NEG) Urine Ethyl Alcohol Neg (NEG) Laboratory Tests Test 03/14/21 17:05 03/14/21 17:41 03/14/21 18:01 03/14/21 19:52 White Blood Count 8.1 x10^3/uL (4.0-11.0) Red Blood Count 1.72 x10^6/uL (3.50-5.40) Hemoglobin 5.4 g/dL (12.0-15.5) Hematocrit 16.3 % (36.0-47.0) Mean Corpuscular Volume 95 fL (79-100) Mean Corpuscular Hemoglobin 31 pg (25-35) Mean Corpuscular Hemoglobin Concent 33 g/dL (31-37) Red Cell Distribution Width 13.8 % (11.5-14.5) Platelet Count 388 x10^3/uL (140-400) Neutrophils (%) (Auto) 74 % (31-73) Lymphocytes (%) (Auto) 22 % (24-48) Monocytes (%) (Auto) 4 % (0-9) Eosinophils (%) (Auto) 0 % (0-3) Basophils (%) (Auto) 1 % (0-3) Neutrophils # (Auto) 6.0 x10^3/uL (1.8-7.7) Lymphocytes # (Auto) 1.7 x10^3/uL (1.0-4.8) Monocytes # (Auto) 0.3 x10^3/uL (0.0-1.1) Eosinophils # (Auto) 0.0 x10^3/uL (0.0-0.7) Basophils # (Auto) 0.0 x10^3/uL (0.0-0.2) Prothrombin Time 16.3 SEC (11.7-14.0) Prothromb Time International Ratio 1.3 (0.8-1.1) Sodium Level 145 mmol/L (136-145) Potassium Level 3.7 mmol/L (3.5-5.1) Chloride Level 107 mmol/L (98-107) Carbon Dioxide Level 15 mmol/L (21-32) Anion Gap 23 (6-14) Blood Urea Nitrogen 62 mg/dL (7-20) Creatinine 1.2 mg/dL (0.6-1.0) Estimated GFR (Cockcroft-Gault) 45.2 BUN/Creatinine Ratio 52 (6-20) Glucose Level 281 mg/dL (70-99) Calcium Level 8.4 mg/dL (8.5-10.1) Magnesium Level 1.9 mg/dL (1.8-2.4) Total Bilirubin 0.1 mg/dL (0.2-1.0) Aspartate Amino Transf (AST/SGOT) 9 U/L (15-37) Alanine Aminotransferase (ALT/SGPT) 17 U/L (14-59) Alkaline Phosphatase 21 U/L (46-116) Troponin I High Sensitivity 45 ng/L (4-50) KT-Xqp-N-Type Natriuretic Peptide 572 pg/mL (0-124) Total Protein 4.9 g/dL (6.4-8.2) Albumin 2.2 g/dL (3.4-5.0) Albumin/Globulin Ratio 0.8 (1.0-1.7) Lipase 142 U/L (73-393) Ethyl Alcohol Level < 10 mg/dL (0-10) Stool Occult Blood Positive (NEG) SARS-CoV-2 Antigen (Rapid) Negative (NEGATIVE) Urine Collection Type Unknown Urine Color Yellow Urine Clarity Clear Urine pH 6.0 (<5.0-8.0) Urine Specific Banks >=1.030 (1.000-1.030) Urine Protein Negative mg/dL (NEG-TRACE) Urine Glucose (UA) Negative mg/dL (NEG) Urine Ketones (Stick) Negative mg/dL (NEG) Urine Blood Large (NEG) Urine Nitrite Negative (NEG) Urine Bilirubin Negative (NEG) Urine Urobilinogen Dipstick 0.2 mg/dL (0.2 mg/dL) Urine Leukocyte Esterase Negative (NEG) Urine RBC 1-2 /HPF (0-2) Urine WBC 1-4 /HPF (0-4) Urine Squamous Epithelial Cells Few /LPF Urine Bacteria Few /HPF (0-FEW) Urine Opiates Screen Neg (NEG) Urine Methadone Screen Neg (NEG) Urine Barbiturates Neg (NEG) Urine Phencyclidine Screen Neg (NEG) Urine Amphetamine/Methamphetamine Neg (NEG) Urine Benzodiazepines Screen Neg (NEG) Urine Cocaine Screen Neg (NEG) Urine Cannabinoids Screen Neg (NEG) Urine Ethyl Alcohol Neg (NEG) Assessment/Plan Assessment/Plan Acute Gi bleed- with severe anemia, syncope. Most likely secondary recurrent PUD with NSAID induced Du likely Plan admit/transfuse to maintain Hg > 8/PPI drip emergent EGD with possible control of bleeding. if unuhelpful, then embolization and/or surgery FUll note dictated TRISHA PULLIAM MD Mar 14, 2021 21:17
[2021-03-14] MEDS: PROPOFOL 100 ML IV PRN (21:20)
--- NOTE | 2021-03-14 21:21 | PDOC4 ---
Operative Note Operative Note EGD Meds propofol per anesthesia Pre-op dx acute blood loss anemia/melen Post-op dx duodenal ulcer with adherent clot with continued bleeding not amenable to clipping/cautery Plan transfusionsal support PPI therpay IR embolization with continued bleeding and increased surgical risks with cardiomyopathya TRISHA PULLIAM MD Mar 14, 2021 21:21
[2021-03-14] MEDS ORDERED: MIDAZOLAM HCL/PF 5 MG/5 ML VIAL. IVP PRN (22:00)
[2021-03-14] MEDS ORDERED: PROPOFOL 10 MG/ML (20ML) VIAL. IV ONE (22:00)
[2021-03-14] MEDS ORDERED: SUCCINYLCHOLINE 200 MG/10 ML VIAL. ONE (22:00)
[2021-03-14] MEDS ORDERED: ETOMIDATE 20 MG/10 ML VIAL. IV ONE (22:00)
[2021-03-14 23:15] LABS: HEMATOCRIT 33.7 % (36.0-47.0); HEMOGLOBIN 11.3 g/dL (12.0-15.5)
[2021-03-14] MEDS ORDERED: fentaNYL PF VIAL 100 MCG/2 ML VIAL ONE (23:23)
[2021-03-14] MEDS ORDERED: 0.9 % SOD CHL for STERILE FIELD 10 ML DISP.SYRIN. ONE ×2 (23:39→23:41)
[2021-03-15] VITALS (9 sets, daily range): BP systolic 84–116; BP diastolic 51–69
[2021-03-15] MEDS ORDERED: fentaNYL PF VIAL 100 MCG/2 ML VIAL IVP ONE
--- NOTE | 2021-03-15 00:34 | RAD ---
EXAM: CHEST ONE VIEW. HISTORY: Line placement. COMPARISON: None. FINDINGS: A frontal view of the chest is obtained. A nasogastric tube has its tip in the distal stoma ch. An endotracheal tube has its tip 5.5 cm above the amelia. There is mild atelectasis or infiltrate in the right base. There is no pneumothorax or pleural effusi on. The heart is not enlarged. IMPRESSION: 1. Mild right basilar atelectasis or infiltrate. Electronically signed by: Flex Calvo MD (03/15/2021 12:31 AM) [facility]
[2021-03-15 00:50] LABS: BASE EXCESS ABG -8 mmol/L (-3-3); HCO3 ABG 17 mmol/L (21-28); PCO2 ABG 34 mmHg (35-46); PO2 ABG 207 mmHg (65-108); SAT O2 ABG 99 % (92-99)
[2021-03-15 00:51] LABS: FIO2 ABG 50
[2021-03-15] MEDS ORDERED: MIDAZOLAM HCL/PF 2 MG/2 ML VIAL. IV ONE (01:30)
[2021-03-15] MEDS: PANTOPRAZOLE SODIUM IV DRIP 80 MG in IV NORMAL SALINE 100ML 100 ML IV SCH ×2 (04:00→16:08)
[2021-03-15] MEDS: IV NORMAL SALINE 1000ML BAG 1,000 ML IV SCH ×2 (04:15→14:15)
[2021-03-15] MEDS ORDERED: fentaNYL HIGH DOSE PCA 55 ML IV PRN (04:30)
--- NOTE | 2021-03-15 04:37 | CONS ---
DATE OF CONSULTATION: 03/14/2021 GI CONSULTATION REASON FOR CONSULTATION: Melena, acute blood loss anemia and syncope. HISTORY OF PRESENT ILLNESS: A 65-year-old female with past medical history significant for breast cancer, status post bilateral mastectomies as well as osteoarthrosis, history of peptic ulcer disease in the past and is admitted to [facility] this evening with acute blood loss anemia. She has been helped in the bathroom by her . She had coffee-ground emesis, subsequently passed a large volume of blood per rectum as well as bright red blood per mouth and became unresponsive. She subsequently was transferred via EMS to the [facility] where she was found to have a hemoglobin of 5.4, blood pressure was 60/40 on admission and is now 124/73 with a pulse of 82, respiratory rate 16. She remains somewhat diaphoretic, but is coherent. Denies any abdominal pain. Does take NSAIDs. Has not had any previous peptic ulcer surgery. Had an ulcer endoscoped, cauterized approximately 10 years ago with acute bleed. Consultation is requested for emergent management and care. PAST MEDICAL HISTORY: Breast cancer and osteoarthrosis. MEDICATIONS: Lisinopril, prednisone as needed. FAMILY AND SOCIAL HISTORY: She does not drink or smoke at this time. FAMILY HISTORY: Noncontributory. REVIEW OF SYSTEMS: Per records. PHYSICAL EXAMINATION: GENERAL: Reveals a pale female. VITAL SIGNS: Temperature 96.7, pulse 82, respiratory rate 16, blood pressure is 124/73. HEENT: Reveals normocephalic, atraumatic head. Pupils and extraocular muscles are not tested. Sclerae are anicteric. NECK: Supple. LUNGS: Clear. CARDIOVASCULAR: Reveals an S1, S2, without S3, S4 or appreciable murmur. ABDOMEN: Reveals a soft abdomen. Normoactive bowel sounds without appreciable hepatosplenomegaly. Epigastric tenderness to deep palpation. EXTREMITIES: Reveals no cyanosis, clubbing or edema. LABORATORY DATA: Hemoglobin 12.4, hematocrit 16.3 pretransfusion, 4 units have been given. White count is 8, platelet count is 368,000. INR is 1.3. Sodium 145, potassium 3.7, chloride 107, BUN is 62, creatinine 1.2, bicarbonate is 15, glucose is 281, calcium is 8.4, magnesium 1.9, total bilirubin is 0.1, AST of 9, ALT 17, alkaline phosphatase 21, total protein is 4.9, albumin is 2.2, lipase is 145. IMPRESSION AND PLAN: Acute blood loss anemia with NSAID use, previous history of ulcers, syncopal episode, peptic ulcer disease, varices, malignancy with recurrent breast cancer within the stomach or duodenum certainly in the differential; therefore, recommend emergent upper endoscopy. Risks and benefits of the procedure have been discussed with the patient and the spouse via telephone this evening with her increased risk of mortality with cardiomyopathy from her chemotherapy as well as discussed. If endoscopic control of bleeding could not be obtained or she should repeat during her stay then embolization with radiology and/or surgical intervention would be recommended. I would like to thank Dr. Anders for allowing us to consult and participate in this patient's care. Her PPI therapy with 4 units of blood and intubation and emergent upper endoscopy ____. TISH/MIKE/KEEGAN DR: Madiha TID: [id number] CC: ____
--- NOTE | 2021-03-15 04:38 | OP ---
DATE OF SURGERY: 03/14/2021 PROCEDURE PERFORMED: Esophagogastroduodenoscopy. INSTRUMENT USED: ____ scope. PREOPERATIVE DIAGNOSIS: Acute blood loss anemia. POSTOPERATIVE DIAGNOSES: Acute blood loss anemia, duodenal ulcer with adherent clot, unable to be controlled successfully endoscopically. MEDICATIONS RECEIVED: Propofol after intubation. DESCRIPTION OF PROCEDURE: After risks and benefits of procedure were discussed with the patient and the patient's spouse via telephone, emergent upper endoscopy was performed after blood transfusions were given, totaling 4 units. The endoscope was then advanced through the esophagus, stomach, first and second portion of the duodenum. No evidence of ulcer, deformity or stricture within the esophagus. No evidence of varices within the distal GE junction or gastric cardia side. Adhering clot was noted, progressing through the pylorus to the second portion of the duodenum where the ulcer was felt to be. This was washed with both therapeutic scope and a diagnostic scope. The clot could not be removed, but due to the large size of clot and continued oozing around the clot, it was elected to have the patient to undergo embolization. Scope was straightened and withdrawn. The patient tolerated the procedure well. We will recommend the patient to proceed with embolization to further assess and potentially control of bleeding as the patient is a high surgical risk for cardiomyopathy. TISH/RYAN/CIERRA DR: Madiha TID: [id number]
[2021-03-15 06:45] LABS: BASO % 0 % (0-3); EOS % 0 % (0-3); HEMATOCRIT 26.2 % (36.0-47.0); HEMOGLOBIN 9.1 g/dL (12.0-15.5); LYMPH # 1.7 x10^3/uL (1.0-4.8); LYMPH % 19 % (24-48); MEAN CORPUSCULAR HEMOGLOBIN 30 pg (25-35); MEAN CORPUSCULAR HGB CONC 35 g/dL (31-37); MEAN CORPUSCULAR VOLUME 86 fL (79-100); MONO # 0.7 x10^3/uL (0.0-1.1); MONO % 8 % (0-9); NEUT # 6.3 x10^3/uL (1.8-7.7); NEUT % 72 % (31-73); PLATELET COUNT 123 x10^3/uL (140-400); RED BLOOD COUNT 3.05 x10^6/uL (3.50-5.40); RED CELL DISTRIBUTION WIDTH 15.6 % (11.5-14.5); WHITE BLOOD COUNT 8.7 x10^3/uL (4.0-11.0)
[2021-03-15 06:49] LABS: CREATININE 0.7 mg/dL (0.6-1.0); GFR 84.2; POTASSIUM 3.4 mmol/L (3.5-5.1)
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
[2021-03-15] MEDS ORDERED: IOHEXOL 300 MG/ML 100ML VIAL. ONE (08:38)
[2021-03-15] MEDS ORDERED: HEPARIN for ARTERIAL LINE 1,500 ML ONE (08:38)
[2021-03-15] MEDS ORDERED: LIDOCAINE WITH 8.4% SOD BICARB 3 ML DISP.SYRIN. ONE (08:39)
[2021-03-15] MEDS: PROPOFOL 100 ML IV PRN (09:16)
--- NOTE | 2021-03-15 09:32 | PDOC2 ---
INTERV RADIOLOGY CONSULT INPT Date of Consult 03/15/21 Reason for Consult UPPER GI BLEED Referring Physician TRISHA PULLIAM Identification/Chief Complaint Upper GI bleed. Sp endoscopy with duodenal clot, likely ulcer. Initially unstable. Intubated. Now doing better off pressor support. History of Present Illness Reason for Visit 65 year old female with Ho breast cancer presents with severe anemia and hematemesis. Hb 5. Hypotensive. Endoscopy showed adherent clot in duodenum with oozing around clot. No end oscopic intervention was possible. Past Medical History Cardiovascular: No pertinent hx Pulmonary: No pertinent hx GI: Peptic Ulcer disease Heme/Onc: No pertinent hx Hepatobiliary: No pertinent hx Psych: No pertinent hx Rheumatologic: No pertinent hx, Fibromyalgia ENT: No pertinent hx Renal/: No pertinent hx Endocrine: No pertinent hx Dermatology: No pertinent hx Past Surgical History Breast Biopsy, Mastectomy Current Medications Current Medications Pantoprazole Sodium (PROTONIX VIAL for IV PUSH) 40 mg 1X ONCE IVP Last administered on 03/14/21at 17:30; Start 03/14/21 at 17:30; Stop 03/14/21 at 17:31; Status DC Pantoprazole Sodium 80 mg/ Sodium Chloride 100 ml @ 10 mls/hr Q10H IV Last administered on 03/14/21at 17:41; Start 03/14/21 at 18:00; Stop 03/15/21 at 17:59 Ceftriaxone Sodium (Rocephin) 1 gm 1X ONCE IVP Last administered on 03/14/21at 17:30; Start 03/14/21 at 17:30; Stop 03/14/21 at 17:31; Status DC Iohexol (Omnipaque 300 Mg/ml) 75 ml 1X ONCE IV ; Start 03/14/21 at 18:00; Stop 03/14/21 at 18:01; Status DC Info (CONTRAST GIVEN -- Rx MONITORING) 1 each PRN DAILY PRN MC SEE COMMENTS; Start 03/14/21 at 18:00; Stop 03/16/21 at 17:59 Sodium Chloride 1,000 ml @ 1,000 mls/hr 1X ONCE IV Last administered on 03/14/21at 17:10; Start 03/14/21 at 18:15; Stop 03/14/21 at 19:14; Status DC Sodium Chloride 1,000 ml @ 1,000 mls/hr 1X ONCE IV Last administered on 03/14/21at 17:30; Start 03/14/21 at 18:15; Stop 03/14/21 at 19:14; Status DC Ondansetron HCl (Zofran) 4 mg PRN Q8HRS PRN IVP NAUSEA/VOMITING; Start 03/14/21 at 18:15; Stop 03/15/21 at 18:14 Morphine Sulfate (Morphine Sulfate) 4 mg PRN Q2HR PRN IVP PAIN; Start 03/14/21 at 18:15; Stop 03/15/21 at 04:27; Status DC Sodium Chloride 1,000 ml @ 100 mls/hr Q10H IV ; Start 03/14/21 at 18:15; Stop 03/15/21 at 18:14 Acetaminophen (Tylenol) 650 mg PRN Q4HRS PRN PO FEVER > 100.3'F; Start 03/14/21 at 18:15; Stop 03/15/21 at 18:14 Iohexol (Omnipaque 350 Mg/ml) 90 ml 1X ONCE IV Last administered on 03/14/21at 18:23; Start 03/14/21 at 18:30; Stop 03/14/21 at 18:31; Status DC Info (CONTRAST GIVEN -- Rx MONITORING) 1 each PRN DAILY PRN MC SEE COMMENTS; Start 03/14/21 at 18:30; Stop 03/16/21 at 18:29 Epinephrine HCl (EPINEPHrine SYRINGE) 1 mg STK-MED ONCE .ROUTE ; Start 03/14/21 at 20:49; Stop 03/14/21 at 20:49; Status DC Midazolam HCl (Versed) 5 mg STK-MED ONCE .ROUTE ; Start 03/14/21 at 21:13; Stop 03/14/21 at 21:13; Status DC Propofol 100 ml @ As Directed STK-MED ONCE IV ; Start 03/14/21 at 21:14; Stop 03/14/21 at 21:14; Status DC Fentanyl Citrate 30 ml @ 0 mls/hr CONT PRN IV SEE PROTOCOL Last administered on 03/15/21at 03:49; Start 03/14/21 at 22:00; Stop 03/15/21 at 05:00; Status DC Propofol 100 ml @ 1.77 mls/hr CONT PRN IV PER PROTOCOL Last administered on 03/15/21at 09:16; Start 03/14/21 at 22:00 Midazolam HCl (Versed) 2 mg PRN 1X PRN IVP VENT INDUCTION Last administered on 03/14/21at 22:15; Start 03/14/21 at 22:00; Stop 03/14/21 at 22:18; Status DC Fentanyl Citrate (Fentanyl 2ml Vial) 100 mcg STK-MED ONCE .ROUTE ; Start 03/14/21 at 23:23; Stop 03/14/21 at 23:23; Status DC Sodium Chloride (NORMAL SALINE FLUSH for STERILE FIELD) 10 ml STK-MED ONCE .ROUTE ; Start 03/14/21 at 23:39; Stop 03/14/21 at 23:39; Status DC Sodium Chloride (NORMAL SALINE FLUSH for STERILE FIELD) 10 ml STK-MED ONCE .ROUTE ; Start 03/14/21 at 23:41; Stop 03/14/21 at 23:41; Status DC Midazolam HCl (Versed) 2 mg 1X ONCE IV Last administered on 03/15/21at 01:23; Start 03/15/21 at 01:30; Stop 03/15/21 at 01:31; Status DC Fentanyl Citrate (Fentanyl 2ml Vial) 100 mcg 1X ONCE IVP Last administered on 03/15/21at 01:26; Start 03/15/21 at 00:00; Stop 03/15/21 at 01:31; Status DC Fentanyl Citrate 55 ml @ 0 mls/hr CONT PRN PRN IV PAIN CONTROL Last administered on 03/15/21at 04:37; Start 03/15/21 at 04:30 Iohexol (Omnipaque 300 Mg/ml) 100 ml STK-MED ONCE .ROUTE ; Start 03/15/21 at 08:38; Stop 03/15/21 at 08:39; Status DC Heparin Sodium/ Sodium Chloride 1,500 ml @ As Directed STK-MED ONCE .ROUTE ; Start 03/15/21 at 08:38; Stop 03/15/21 at 08:39; Status DC Lidocaine HCl (Buffered Lidocaine 1%) 3 ml STK-MED ONCE .ROUTE ; Start 03/15/21 at 08:39; Stop 03/15/21 at 08:39; Status DC Active Scripts Active Reported Pantoprazole Sodium 40 Mg Tablet.dr 1 Tab PO DAILY Cymbalta (Duloxetine Hcl) 20 Mg Capsule.dr Unknown Dose PO DAILY Lisinopril 10 Mg Tablet 1 Tab PO DAILY Anastrozole 1 Mg Tablet 1 Tab PO DAILY Pantoprazole Sodium 40 Mg Tablet. 40 Mg PO DAILY Allergies Coded Allergies: No Known Drug Allergies (Unverified , 03/14/21) Physical Exam Cardiovascular regular. normal rate. Chest clear bilaterally Mental Status sedated Vascular right common femoral pulse normal . Vitals Vital Signs Date Time Temp Pulse Resp B/P (MAP) Pulse Ox O2 Delivery O2 Flow Rate FiO2 03/15/21 09:17 18 100 Ventilator 03/15/21 06:45 77 100/56 (71) 03/15/21 06:30 97.9 97.9 03/14/21 20:45 2.0 Labs Laboratory Tests Test 03/14/21 17:05 03/14/21 17:41 03/14/21 18:01 03/14/21 19:52 White Blood Count 8.1 x10^3/uL (4.0-11.0) Red Blood Count 1.72 x10^6/uL (3.50-5.40) Hemoglobin 5.4 g/dL (12.0-15.5) Hematocrit 16.3 % (36.0-47.0) Mean Corpuscular Volume 95 fL (79-100) Mean Corpuscular Hemoglobin 31 pg (25-35) Mean Corpuscular Hemoglobin Concent 33 g/dL (31-37) Red Cell Distribution Width 13.8 % (11.5-14.5) Platelet Count 388 x10^3/uL (140-400) Neutrophils (%) (Auto) 74 % (31-73) Lymphocytes (%) (Auto) 22 % (24-48) Monocytes (%) (Auto) 4 % (0-9) Eosinophils (%) (Auto) 0 % (0-3) Basophils (%) (Auto) 1 % (0-3) Neutrophils # (Auto) 6.0 x10^3/uL (1.8-7.7) Lymphocytes # (Auto) 1.7 x10^3/uL (1.0-4.8) Monocytes # (Auto) 0.3 x10^3/uL (0.0-1.1) Eosinophils # (Auto) 0.0 x10^3/uL (0.0-0.7) Basophils # (Auto) 0.0 x10^3/uL (0.0-0.2) Prothrombin Time 16.3 SEC (11.7-14.0) Prothromb Time International Ratio 1.3 (0.8-1.1) Sodium Level 145 mmol/L (136-145) Potassium Level 3.7 mmol/L (3.5-5.1) Chloride Level 107 mmol/L (98-107) Carbon Dioxide Level 15 mmol/L (21-32) Anion Gap 23 (6-14) Blood Urea Nitrogen 62 mg/dL (7-20) Creatinine 1.2 mg/dL (0.6-1.0) Estimated GFR (Cockcroft-Gault) 45.2 BUN/Creatinine Ratio 52 (6-20) Glucose Level 281 mg/dL (70-99) Calcium Level 8.4 mg/dL (8.5-10.1) Magnesium Level 1.9 mg/dL (1.8-2.4) Total Bilirubin 0.1 mg/dL (0.2-1.0) Aspartate Amino Transf (AST/SGOT) 9 U/L (15-37) Alanine Aminotransferase (ALT/SGPT) 17 U/L (14-59) Alkaline Phosphatase 21 U/L (46-116) Troponin I High Sensitivity 45 ng/L (4-50) [id number] Natriuretic Peptide 572 pg/mL (0-124) Total Protein 4.9 g/dL (6.4-8.2) Albumin 2.2 g/dL (3.4-5.0) Albumin/Globulin Ratio 0.8 (1.0-1.7) Lipase 142 U/L (73-393) Ethyl Alcohol Level < 10 mg/dL (0-10) Stool Occult Blood Positive (NEG) SARS-CoV-2 Antigen (Rapid) Negative (NEGATIVE) Urine Collection Type Unknown Urine Color Yellow Urine Clarity Clear Urine pH 6.0 (<5.0-8.0) Urine Specific [place] >=1.030 (1.000-1.030) Urine Protein Negative mg/dL (NEG-TRACE) Urine Glucose (UA) Negative mg/dL (NEG) Urine Ketones (Stick) Negative mg/dL (NEG) Urine Blood Large (NEG) Urine Nitrite Negative (NEG) Urine Bilirubin Negative (NEG) Urine Urobilinogen Dipstick 0.2 mg/dL (0.2 mg/dL) Urine Leukocyte Esterase Negative (NEG) Urine RBC 1-2 /HPF (0-2) Urine WBC 1-4 /HPF (0-4) Urine Squamous Epithelial Cells Few /LPF Urine Bacteria Few /HPF (0-FEW) Urine Opiates Screen Neg (NEG) Urine Methadone Screen Neg (NEG) Urine Barbiturates Neg (NEG) Urine Phencyclidine Screen Neg (NEG) Urine Amphetamine/Methamphetamine Neg (NEG) Urine Benzodiazepines Screen Neg (NEG) Urine Cocaine Screen Neg (NEG) Urine Cannabinoids Screen Neg (NEG) Urine Ethyl Alcohol Neg (NEG) Test 03/14/21 22:05 03/15/21 00:34 03/15/21 00:45 03/15/21 06:10 Hemoglobin 11.3 g/dL (12.0-15.5) 9.1 g/dL (12.0-15.5) Hematocrit 33.7 % (36.0-47.0) 26.2 % (36.0-47.0) Mean Corpuscular Hemoglobin Concent 33 g/dL (31-37) 35 g/dL (31-37) Glucose (Fingerstick) 116 mg/dL (70-99) O2 Saturation 99 % (92-99) Arterial Blood pH 7.32 (7.35-7.45) Arterial Blood pCO2 at Patient Temp 34 mmHg (35-46) Arterial Blood pO2 at Patient Temp 207 mmHg (65-108) Arterial Blood HCO3 17 mmol/L (21-28) Arterial Blood Base Excess -8 mmol/L (-3-3) FiO2 50 White Blood Count 8.7 x10^3/uL (4.0-11.0) Red Blood Count 3.05 x10^6/uL (3.50-5.40) Mean Corpuscular Volume 86 fL (79-100) Mean Corpuscular Hemoglobin 30 pg (25-35) Red Cell Distribution Width 15.6 % (11.5-14.5) Platelet Count 123 x10^3/uL (140-400) Neutrophils (%) (Auto) 72 % (31-73) Lymphocytes (%) (Auto) 19 % (24-48) Monocytes (%) (Auto) 8 % (0-9) Eosinophils (%) (Auto) 0 % (0-3) Basophils (%) (Auto) 0 % (0-3) Neutrophils # (Auto) 6.3 x10^3/uL (1.8-7.7) Lymphocytes # (Auto) 1.7 x10^3/uL (1.0-4.8) Monocytes # (Auto) 0.7 x10^3/uL (0.0-1.1) Eosinophils # (Auto) 0.0 x10^3/uL (0.0-0.7) Basophils # (Auto) 0.0 x10^3/uL (0.0-0.2) Sodium Level 145 mmol/L (136-145) Potassium Level 3.4 mmol/L (3.5-5.1) Chloride Level 113 mmol/L (98-107) Carbon Dioxide Level 24 mmol/L (21-32) Anion Gap 8 (6-14) Blood Urea Nitrogen 45 mg/dL (7-20) Creatinine 0.7 mg/dL (0.6-1.0) Estimated GFR (Cockcroft-Gault) 84.2 Glucose Level 80 mg/dL (70-99) Calcium Level 7.0 mg/dL (8.5-10.1) Laboratory Tests Test 03/14/21 17:05 03/14/21 17:41 03/14/21 18:01 03/14/21 19:52 White Blood Count 8.1 x10^3/uL (4.0-11.0) Red Blood Count 1.72 x10^6/uL (3.50-5.40) Hemoglobin 5.4 g/dL (12.0-15.5) Hematocrit 16.3 % (36.0-47.0) Mean Corpuscular Volume 95 fL (79-100) Mean Corpuscular Hemoglobin 31 pg (25-35) Mean Corpuscular Hemoglobin Concent 33 g/dL (31-37) Red Cell Distribution Width 13.8 % (11.5-14.5) Platelet Count 388 x10^3/uL (140-400) Neutrophils (%) (Auto) 74 % (31-73) Lymphocytes (%) (Auto) 22 % (24-48) Monocytes (%) (Auto) 4 % (0-9) Eosinophils (%) (Auto) 0 % (0-3) Basophils (%) (Auto) 1 % (0-3) Neutrophils # (Auto) 6.0 x10^3/uL (1.8-7.7) Lymphocytes # (Auto) 1.7 x10^3/uL (1.0-4.8) Monocytes # (Auto) 0.3 x10^3/uL (0.0-1.1) Eosinophils # (Auto) 0.0 x10^3/uL (0.0-0.7) Basophils # (Auto) 0.0 x10^3/uL (0.0-0.2) Prothrombin Time 16.3 SEC (11.7-14.0) Prothromb Time International Ratio 1.3 (0.8-1.1) Sodium Level 145 mmol/L (136-145) Potassium Level 3.7 mmol/L (3.5-5.1) Chloride Level 107 mmol/L (98-107) Carbon Dioxide Level 15 mmol/L (21-32) Anion Gap 23 (6-14) Blood Urea Nitrogen 62 mg/dL (7-20) Creatinine 1.2 mg/dL (0.6-1.0) Estimated GFR (Cockcroft-Gault) 45.2 BUN/Creatinine Ratio 52 (6-20) Glucose Level 281 mg/dL (70-99) Calcium Level 8.4 mg/dL (8.5-10.1) Magnesium Level 1.9 mg/dL (1.8-2.4) Total Bilirubin 0.1 mg/dL (0.2-1.0) Aspartate Amino Transf (AST/SGOT) 9 U/L (15-37) Alanine Aminotransferase (ALT/SGPT) 17 U/L (14-59) Alkaline Phosphatase 21 U/L (46-116) Troponin I High Sensitivity 45 ng/L (4-50) [id number]-Type Natriuretic Peptide 572 pg/mL (0-124) Total Protein 4.9 g/dL (6.4-8.2) Albumin 2.2 g/dL (3.4-5.0) Albumin/Globulin Ratio 0.8 (1.0-1.7) Lipase 142 U/L (73-393) Ethyl Alcohol Level < 10 mg/dL (0-10) Stool Occult Blood Positive (NEG) SARS-CoV-2 Antigen (Rapid) Negative (NEGATIVE) Urine Collection Type Unknown Urine Color Yellow Urine Clarity Clear Urine pH 6.0 (<5.0-8.0) Urine Specific [place] >=1.030 (1.000-1.030) Urine Protein Negative mg/dL (NEG-TRACE) Urine Glucose (UA) Negative mg/dL (NEG) Urine Ketones (Stick) Negative mg/dL (NEG) Urine Blood Large (NEG) Urine Nitrite Negative (NEG) Urine Bilirubin Negative (NEG) Urine Urobilinogen Dipstick 0.2 mg/dL (0.2 mg/dL) Urine Leukocyte Esterase Negative (NEG) Urine RBC 1-2 /HPF (0-2) Urine WBC 1-4 /HPF (0-4) Urine Squamous Epithelial Cells Few /LPF Urine Bacteria Few /HPF (0-FEW) Urine Opiates Screen Neg (NEG) Urine Methadone Screen Neg (NEG) Urine Barbiturates Neg (NEG) Urine Phencyclidine Screen Neg (NEG) Urine Amphetamine/Methamphetamine Neg (NEG) Urine Benzodiazepines Screen Neg (NEG) Urine Cocaine Screen Neg (NEG) Urine Cannabinoids Screen Neg (NEG) Urine Ethyl Alcohol Neg (NEG) Test 03/14/21 22:05 03/15/21 00:34 03/15/21 00:45 03/15/21 06:10 Hemoglobin 11.3 g/dL (12.0-15.5) 9.1 g/dL (12.0-15.5) Hematocrit 33.7 % (36.0-47.0) 26.2 % (36.0-47.0) Mean Corpuscular Hemoglobin Concent 33 g/dL (31-37) 35 g/dL (31-37) Glucose (Fingerstick) 116 mg/dL (70-99) O2 Saturation 99 % (92-99) Arterial Blood pH 7.32 (7.35-7.45) Arterial Blood pCO2 at Patient Temp 34 mmHg (35-46) Arterial Blood pO2 at Patient Temp 207 mmHg (65-108) Arterial Blood HCO3 17 mmol/L (21-28) Arterial Blood Base Excess -8 mmol/L (-3-3) FiO2 50 White Blood Count 8.7 x10^3/uL (4.0-11.0) Red Blood Count 3.05 x10^6/uL (3.50-5.40) Mean Corpuscular Volume 86 fL (79-100) Mean Corpuscular Hemoglobin 30 pg (25-35) Red Cell Distribution Width 15.6 % (11.5-14.5) Platelet Count 123 x10^3/uL (140-400) Neutrophils (%) (Auto) 72 % (31-73) Lymphocytes (%) (Auto) 19 % (24-48) Monocytes (%) (Auto) 8 % (0-9) Eosinophils (%) (Auto) 0 % (0-3) Basophils (%) (Auto) 0 % (0-3) Neutrophils # (Auto) 6.3 x10^3/uL (1.8-7.7) Lymphocytes # (Auto) 1.7 x10^3/uL (1.0-4.8) Monocytes # (Auto) 0.7 x10^3/uL (0.0-1.1) Eosinophils # (Auto) 0.0 x10^3/uL (0.0-0.7) Basophils # (Auto) 0.0 x10^3/uL (0.0-0.2) Sodium Level 145 mmol/L (136-145) Potassium Level 3.4 mmol/L (3.5-5.1) Chloride Level 113 mmol/L (98-107) Carbon Dioxide Level 24 mmol/L (21-32) Anion Gap 8 (6-14) Blood Urea Nitrogen 45 mg/dL (7-20) Creatinine 0.7 mg/dL (0.6-1.0) Estimated GFR (Cockcroft-Gault) 84.2 Glucose Level 80 mg/dL (70-99) Calcium Level 7.0 mg/dL (8.5-10.1) Diagnostic Data/Imaging Laboratory Tests Test 03/14/21 17:05 03/14/21 17:41 03/14/21 18:01 03/14/21 19:52 White Blood Count 8.1 x10^3/uL Red Blood Count 1.72 x10^6/uL Hemoglobin 5.4 g/dL Hematocrit 16.3 % Mean Corpuscular Volume 95 fL Mean Corpuscular Hemoglobin 31 pg Mean Corpuscular Hemoglobin Concent 33 g/dL Red Cell Distribution Width 13.8 % Platelet Count 388 x10^3/uL Neutrophils (%) (Auto) 74 % Lymphocytes (%) (Auto) 22 % Monocytes (%) (Auto) 4 % Eosinophils (%) (Auto) 0 % Basophils (%) (Auto) 1 % Neutrophils # (Auto) 6.0 x10^3/uL Lymphocytes # (Auto) 1.7 x10^3/uL Monocytes # (Auto) 0.3 x10^3/uL Eosinophils # (Auto) 0.0 x10^3/uL Basophils # (Auto) 0.0 x10^3/uL Prothrombin Time 16.3 SEC Prothromb Time International Ratio 1.3 Sodium Level 145 mmol/L Potassium Level 3.7 mmol/L Chloride Level 107 mmol/L Carbon Dioxide Level 15 mmol/L Anion Gap 23 Blood Urea Nitrogen 62 mg/dL Creatinine 1.2 mg/dL Estimated GFR (Cockcroft-Gault) 45.2 BUN/Creatinine Ratio 52 Glucose Level 281 mg/dL Calcium Level 8.4 mg/dL Magnesium Level 1.9 mg/dL Total Bilirubin 0.1 mg/dL Aspartate Amino Transf (AST/SGOT) 9 U/L Alanine Aminotransferase (ALT/SGPT) 17 U/L Alkaline Phosphatase 21 U/L Troponin I High Sensitivity 45 ng/L [id number] Natriuretic Peptide 572 pg/mL Total Protein 4.9 g/dL Albumin 2.2 g/dL Albumin/Globulin Ratio 0.8 Lipase 142 U/L Ethyl Alcohol Level < 10 mg/dL Stool Occult Blood Positive SARS-CoV-2 Antigen (Rapid) Negative Urine Collection Type Unknown Urine Color Yellow Urine Clarity Clear Urine pH 6.0 Urine Specific [place] >=1.030 Urine Protein Negative mg/dL Urine Glucose (UA) Negative mg/dL Urine Ketones (Stick) Negative mg/dL Urine Blood Large Urine Nitrite Negative Urine Bilirubin Negative Urine Urobilinogen Dipstick 0.2 mg/dL Urine Leukocyte Esterase Negative Urine RBC 1-2 /HPF Urine WBC 1-4 /HPF Urine Squamous Epithelial Cells Few /LPF Urine Bacteria Few /HPF Urine Opiates Screen Neg Urine Methadone Screen Neg Urine Barbiturates Neg Urine Phencyclidine Screen Neg Urine Amphetamine/Methamphetamine Neg Urine Benzodiazepines Screen Neg Urine Cocaine Screen Neg Urine Cannabinoids Screen Neg Urine Ethyl Alcohol Neg Test 03/14/21 22:05 03/15/21 00:34 03/15/21 00:45 03/15/21 06:10 Hemoglobin 11.3 g/dL 9.1 g/dL Hematocrit 33.7 % 26.2 % Mean Corpuscular Hemoglobin Concent 33 g/dL 35 g/dL Glucose (Fingerstick) 116 mg/dL O2 Saturation 99 % Arterial Blood pH 7.32 Arterial Blood pCO2 at Patient Temp 34 mmHg Arterial Blood pO2 at Patient Temp 207 mmHg Arterial Blood HCO3 17 mmol/L Arterial Blood Base Excess -8 mmol/L FiO2 50 White Blood Count 8.7 x10^3/uL Red Blood Count 3.05 x10^6/uL Mean Corpuscular Volume 86 fL Mean Corpuscular Hemoglobin 30 pg Red Cell Distribution Width 15.6 % Platelet Count 123 x10^3/uL Neutrophils (%) (Auto) 72 % Lymphocytes (%) (Auto) 19 % Monocytes (%) (Auto) 8 % Eosinophils (%) (Auto) 0 % Basophils (%) (Auto) 0 % Neutrophils # (Auto) 6.3 x10^3/uL Lymphocytes # (Auto) 1.7 x10^3/uL Monocytes # (Auto) 0.7 x10^3/uL Eosinophils # (Auto) 0.0 x10^3/uL Basophils # (Auto) 0.0 x10^3/uL Sodium Level 145 mmol/L Potassium Level 3.4 mmol/L Chloride Level 113 mmol/L Carbon Dioxide Level 24 mmol/L Anion Gap 8 Blood Urea Nitrogen 45 mg/dL Creatinine 0.7 mg/dL Estimated GFR (Cockcroft-Gault) 84.2 Glucose Level 80 mg/dL Calcium Level 7.0 mg/dL Current Medications Medications (Trade) Dose Ordered Sig/Jn Route PRN Reason Start Time Stop Time Status Last Admin Dose Admin Pantoprazole Sodium (PROTONIX VIAL for IV PUSH) 40 mg 1X ONCE IVP 03/14/21 17:30 03/14/21 17:31 DC 03/14/21 17:30 Pantoprazole Sodium 80 mg/ Sodium Chloride 100 ml @ 10 mls/hr Q10H IV 03/14/21 18:00 03/15/21 17:59 03/14/21 17:41 Ceftriaxone Sodium (Rocephin) 1 gm 1X ONCE IVP 03/14/21 17:30 03/14/21 17:31 DC 03/14/21 17:30 Iohexol (Omnipaque 300 Mg/ml) 75 ml 1X ONCE IV 03/14/21 18:00 03/14/21 18:01 DC Info (CONTRAST GIVEN -- Rx MONITORING) 1 each PRN DAILY PRN SEE COMMENTS 03/14/21 18:00 03/16/21 17:59 Sodium Chloride 1,000 ml @ 1,000 mls/hr 1X ONCE IV 03/14/21 18:15 03/14/21 19:14 DC 03/14/21 17:10 Sodium Chloride 1,000 ml @ 1,000 mls/hr 1X ONCE IV 03/14/21 18:15 03/14/21 19:14 DC 03/14/21 17:30 Ondansetron HCl (Zofran) 4 mg PRN Q8HRS PRN IVP NAUSEA/VOMITING 03/14/21 18:15 03/15/21 18:14 Morphine Sulfate (Morphine Sulfate) 4 mg PRN Q2HR PRN IVP PAIN 03/14/21 18:15 03/15/21 04:27 DC Sodium Chloride 1,000 ml @ 100 mls/hr Q10H IV 03/14/21 18:15 03/15/21 18:14 Acetaminophen (Tylenol) 650 mg PRN Q4HRS PRN PO FEVER > 100.3'F 03/14/21 18:15 03/15/21 18:14 Iohexol (Omnipaque 350 Mg/ml) 90 ml 1X ONCE IV 03/14/21 18:30 03/14/21 18:31 DC 03/14/21 18:23 Info (CONTRAST GIVEN -- Rx MONITORING) 1 each PRN DAILY PRN SEE COMMENTS 03/14/21 18:30 03/16/21 18:29 Epinephrine HCl (EPINEPHrine SYRINGE) 1 mg STK-MED ONCE .ROUTE 03/14/21 20:49 03/14/21 20:49 DC Midazolam HCl (Versed) 5 mg STK-MED ONCE .ROUTE 03/14/21 21:13 03/14/21 21:13 DC Propofol 100 ml @ As Directed STK-MED ONCE IV 03/14/21 21:14 03/14/21 21:14 DC Fentanyl Citrate 30 ml @ 0 mls/hr CONT PRN IV SEE PROTOCOL 03/14/21 22:00 03/15/21 05:00 DC 03/15/21 03:49 Propofol 100 ml @ 1.77 mls/hr CONT PRN IV PER PROTOCOL 03/14/21 22:00 03/15/21 09:16 Midazolam HCl (Versed) 2 mg PRN 1X PRN IVP VENT INDUCTION 03/14/21 22:00 03/14/21 22:18 DC 03/14/21 22:15 Fentanyl Citrate (Fentanyl 2ml Vial) 100 mcg STK-MED ONCE .ROUTE 03/14/21 23:23 03/14/21 23:23 DC Sodium Chloride (NORMAL SALINE FLUSH for STERILE FIELD) 10 ml STK-MED ONCE .ROUTE 03/14/21 23:39 03/14/21 23:39 DC Sodium Chloride (NORMAL SALINE FLUSH for STERILE FIELD) 10 ml STK-MED ONCE .ROUTE 03/14/21 23:41 03/14/21 23:41 DC Midazolam HCl (Versed) 2 mg 1X ONCE IV 03/15/21 01:30 03/15/21 01:31 DC 03/15/21 01:23 Fentanyl Citrate (Fentanyl 2ml Vial) 100 mcg 1X ONCE IVP 03/15/21 00:00 03/15/21 01:31 DC 03/15/21 01:26 Fentanyl Citrate 55 ml @ 0 mls/hr CONT PRN PRN IV PAIN CONTROL 03/15/21 04:30 03/15/21 04:37 Iohexol (Omnipaque 300 Mg/ml) 100 ml STK-MED ONCE .ROUTE 03/15/21 08:38 03/15/21 08:39 DC Heparin Sodium/ Sodium Chloride 1,500 ml @ As Directed STK-MED ONCE .ROUTE 03/15/21 08:38 03/15/21 08:39 DC Lidocaine HCl (Buffered Lidocaine 1%) 3 ml STK-MED ONCE .ROUTE 03/15/21 08:39 03/15/21 08:39 DC Assessment/Plan Upper GI bleed. Likely duodenal. Seems to have slowed, but was life threatening within last 12 hours. No plans for repeat endoscopy or surgery. CTA reviewed. No acitve bleed identified. Essentially normal vascular anatomy. Will perform angiogram to try and identify source. If no source identified will consider empiric embolization GDA to help minimize chance of catastrophic re- bleed in immediate future. Discussed plan with patients nurse, , and GI DIO Cartagena MD Mar 15, 2021 09:32
[2021-03-15] MEDS ORDERED: IOHEXOL 300 MG/ML 100ML VIAL. IART ONE (10:15)
[2021-03-15] MEDS ORDERED: LIDOCAINE WITH 8.4% SOD BICARB 3 ML DISP.SYRIN. IJ ONE (10:15)
[2021-03-15] MEDS ORDERED: CONTRAST GIVEN. MC PRN (10:30)
--- NOTE | 2021-03-15 11:09 | PDOC ---
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 GDA empirically embolized with multiple coils No immediate complications Will return to ED as ICU has no bed available. ICU nursing is with patient in the ED. DIO MAYER MD Mar 15, 2021 11:09
[2021-03-15 11:31] LABS: HEMATOCRIT 24.5 % (36.0-47.0); HEMOGLOBIN 8.5 g/dL (12.0-15.5)
--- NOTE | 2021-03-15 12:19 | PREOP HP ---
DATE OF SERVICE: 03/15/2021 CHIEF COMPLAINT AND HISTORY OF PRESENT ILLNESS: This 65-year-old female came in from home via EMS due to GI bleeding. Thus, she was hypotensive with a blood pressure of 66/50. The reported coughing and she was having melena upon presentation. She did have a syncopal episode on trying to go to the bathroom with some seizure activity noted. She has been complaining of right upper quadrant pain for the last 4-5 days. She does have a prior history of a large GI bleed from bleeding ulcer in the past. She was admitted to the Emergency Room, attempted endoscopy, EGD with therapy was impossible, but had a large duodenal clot with some oozing around, but unable to remedy it. IR has been consulted for possible embolization and Surgery has been consulted in case this is needed for treatment. PAST MEDICAL HISTORY: Remarkable for the peptic ulcer disease, breast cancer. She has had bilateral mastectomies. PAST SURGICAL HISTORY: Remarkable for . MEDICATIONS: Brought with the patient, listed on the computer and have been addressed. ALLERGIES: She has no known drug allergies. SOCIAL HISTORY: She is a nonsmoker, nondrinker and does not abuse drugs. 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 FAMILY HISTORY: Noncontributory. REVIEW OF SYSTEMS: Unobtainable as she is sedated in a bed in the Emergency Room. PHYSICAL EXAMINATION: GENERAL: She is well-developed, well-nourished female with good color currently. VITAL SIGNS: Blood pressure reveals 110 systolic. Pulse is in the 70s. HEAD, EYES, EARS, NOSE AND THROAT: Remarkable for the endotracheal tube. NECK: Supple, without adenopathy or thyromegaly. CHEST: Good breath sounds bilaterally. HEART: Regular rate and rhythm without S3, S4 or murmur. ABDOMEN: Soft, nondistended. I can feel no organomegaly or masses. EXTREMITIES: Without cyanosis, clubbing, edema. NEUROLOGIC: Unobtainable due to sedated state. LABORATORY DATA: She has received per report 4 units of packed red blood cells with her last hemoglobin of 9 this morning at 6:00. Platelet count has dropped to 123,000. BUN has decreased from 6 to 4.5, hopefully reflecting less blood in the bowel. Creatinine dropped from 1.2 to 0.7. Toxicology screen and screening for COVID are negative. Fecal occult was positive, but visually so without the occult testing. IMPRESSION: Massive upper GI bleed as described above, currently hemodynamically stable on ventilator and sedated in the ER with plans as noted above. PLAN: Continue supportive blood products as needed. Hopefully, we will be able to get the bleeding under control without a surgical procedure. HILDA/CRISTY DR: Paresh TID: [id number]
--- NOTE | 2021-03-15 13:12 | PDOC ---
PULMONARY PROGRESS NOTES DATE: 03/15/21 TIME: 13:11 Vitals Vital Signs Date Time Temp Pulse Resp B/P (MAP) Pulse Ox O2 Delivery O2 Flow Rate FiO2 03/15/21 12:00 98.7 71 18 84/51 100 Ventilator 98.7 03/14/21 20:45 2.0 General: Alert, No acute distress Lungs: Other Cardiovascular: S1 Abdomen: Soft Extremities: No Edema Labs Laboratory Tests Test 03/14/21 17:05 03/14/21 17:41 03/14/21 18:01 03/14/21 19:52 White Blood Count 8.1 x10^3/uL (4.0-11.0) Red Blood Count 1.72 x10^6/uL (3.50-5.40) Hemoglobin 5.4 g/dL (12.0-15.5) Hematocrit 16.3 % (36.0-47.0) Mean Corpuscular Volume 95 fL (79-100) Mean Corpuscular Hemoglobin 31 pg (25-35) Mean Corpuscular Hemoglobin Concent 33 g/dL (31-37) Red Cell Distribution Width 13.8 % (11.5-14.5) Platelet Count 388 x10^3/uL (140-400) Neutrophils (%) (Auto) 74 % (31-73) Lymphocytes (%) (Auto) 22 % (24-48) Monocytes (%) (Auto) 4 % (0-9) Eosinophils (%) (Auto) 0 % (0-3) Basophils (%) (Auto) 1 % (0-3) Neutrophils # (Auto) 6.0 x10^3/uL (1.8-7.7) Lymphocytes # (Auto) 1.7 x10^3/uL (1.0-4.8) Monocytes # (Auto) 0.3 x10^3/uL (0.0-1.1) Eosinophils # (Auto) 0.0 x10^3/uL (0.0-0.7) Basophils # (Auto) 0.0 x10^3/uL (0.0-0.2) Prothrombin Time 16.3 SEC (11.7-14.0) Prothromb Time International Ratio 1.3 (0.8-1.1) Sodium Level 145 mmol/L (136-145) Potassium Level 3.7 mmol/L (3.5-5.1) Chloride Level 107 mmol/L (98-107) Carbon Dioxide Level 15 mmol/L (21-32) Anion Gap 23 (6-14) Blood Urea Nitrogen 62 mg/dL (7-20) Creatinine 1.2 mg/dL (0.6-1.0) Estimated GFR (Cockcroft-Gault) 45.2 BUN/Creatinine Ratio 52 (6-20) Glucose Level 281 mg/dL (70-99) Calcium Level 8.4 mg/dL (8.5-10.1) Magnesium Level 1.9 mg/dL (1.8-2.4) Total Bilirubin 0.1 mg/dL (0.2-1.0) Aspartate Amino Transf (AST/SGOT) 9 U/L (15-37) Alanine Aminotransferase (ALT/SGPT) 17 U/L (14-59) Alkaline Phosphatase 21 U/L (46-116) Troponin I High Sensitivity 45 ng/L (4-50) XP-Cje-[id number]-Type Natriuretic Peptide 572 pg/mL (0-124) Total Protein 4.9 g/dL (6.4-8.2) Albumin 2.2 g/dL (3.4-5.0) Albumin/Globulin Ratio 0.8 (1.0-1.7) Lipase 142 U/L (73-393) Ethyl Alcohol Level < 10 mg/dL (0-10) Stool Occult Blood Positive (NEG) SARS-CoV-2 RNA (SINDY) Negative (Negative) SARS-CoV-2 Antigen (Rapid) Negative (NEGATIVE) Urine Collection Type Unknown Urine Color Yellow Urine Clarity Clear Urine pH 6.0 (<5.0-8.0) Urine Specific [place] >=1.030 (1.000-1.030) Urine Protein Negative mg/dL (NEG-TRACE) Urine Glucose (UA) Negative mg/dL (NEG) Urine Ketones (Stick) Negative mg/dL (NEG) Urine Blood Large (NEG) Urine Nitrite Negative (NEG) Urine Bilirubin Negative (NEG) Urine Urobilinogen Dipstick 0.2 mg/dL (0.2 mg/dL) Urine Leukocyte Esterase Negative (NEG) Urine RBC 1-2 /HPF (0-2) Urine WBC 1-4 /HPF (0-4) Urine Squamous Epithelial Cells Few /LPF Urine Bacteria Few /HPF (0-FEW) Urine Opiates Screen Neg (NEG) Urine Methadone Screen Neg (NEG) Urine Barbiturates Neg (NEG) Urine Phencyclidine Screen Neg (NEG) Urine Amphetamine/Methamphetamine Neg (NEG) Urine Benzodiazepines Screen Neg (NEG) Urine Cocaine Screen Neg (NEG) Urine Cannabinoids Screen Neg (NEG) Urine Ethyl Alcohol Neg (NEG) Test 03/14/21 22:05 03/15/21 00:34 03/15/21 00:45 03/15/21 06:10 Hemoglobin 11.3 g/dL (12.0-15.5) 9.1 g/dL (12.0-15.5) Hematocrit 33.7 % (36.0-47.0) 26.2 % (36.0-47.0) Mean Corpuscular Hemoglobin Concent 33 g/dL (31-37) 35 g/dL (31-37) Glucose (Fingerstick) 116 mg/dL (70-99) O2 Saturation 99 % (92-99) Arterial Blood pH 7.32 (7.35-7.45) Arterial Blood pCO2 at Patient Temp 34 mmHg (35-46) Arterial Blood pO2 at Patient Temp 207 mmHg (65-108) Arterial Blood HCO3 17 mmol/L (21-28) Arterial Blood Base Excess -8 mmol/L (-3-3) FiO2 50 White Blood Count 8.7 x10^3/uL (4.0-11.0) Red Blood Count 3.05 x10^6/uL (3.50-5.40) Mean Corpuscular Volume 86 fL (79-100) Mean Corpuscular Hemoglobin 30 pg (25-35) Red Cell Distribution Width 15.6 % (11.5-14.5) Platelet Count 123 x10^3/uL (140-400) Neutrophils (%) (Auto) 72 % (31-73) Lymphocytes (%) (Auto) 19 % (24-48) Monocytes (%) (Auto) 8 % (0-9) Eosinophils (%) (Auto) 0 % (0-3) Basophils (%) (Auto) 0 % (0-3) Neutrophils # (Auto) 6.3 x10^3/uL (1.8-7.7) Lymphocytes # (Auto) 1.7 x10^3/uL (1.0-4.8) Monocytes # (Auto) 0.7 x10^3/uL (0.0-1.1) Eosinophils # (Auto) 0.0 x10^3/uL (0.0-0.7) Basophils # (Auto) 0.0 x10^3/uL (0.0-0.2) Sodium Level 145 mmol/L (136-145) Potassium Level 3.4 mmol/L (3.5-5.1) Chloride Level 113 mmol/L (98-107) Carbon Dioxide Level 24 mmol/L (21-32) Anion Gap 8 (6-14) Blood Urea Nitrogen 45 mg/dL (7-20) Creatinine 0.7 mg/dL (0.6-1.0) Estimated GFR (Cockcroft-Gault) 84.2 Glucose Level 80 mg/dL (70-99) Calcium Level 7.0 mg/dL (8.5-10.1) Test 03/15/21 11:24 Hemoglobin 8.5 g/dL (12.0-15.5) Hematocrit 24.5 % (36.0-47.0) Mean Corpuscular Hemoglobin Concent 35 g/dL (31-37) Laboratory Tests Test 03/14/21 17:05 03/14/21 17:41 03/14/21 18:01 03/14/21 19:52 White Blood Count 8.1 x10^3/uL (4.0-11.0) Red Blood Count 1.72 x10^6/uL (3.50-5.40) Hemoglobin 5.4 g/dL (12.0-15.5) Hematocrit 16.3 % (36.0-47.0) Mean Corpuscular Volume 95 fL (79-100) Mean Corpuscular Hemoglobin 31 pg (25-35) Mean Corpuscular Hemoglobin Concent 33 g/dL (31-37) Red Cell Distribution Width 13.8 % (11.5-14.5) Platelet Count 388 x10^3/uL (140-400) Neutrophils (%) (Auto) 74 % (31-73) Lymphocytes (%) (Auto) 22 % (24-48) Monocytes (%) (Auto) 4 % (0-9) Eosinophils (%) (Auto) 0 % (0-3) Basophils (%) (Auto) 1 % (0-3) Neutrophils # (Auto) 6.0 x10^3/uL (1.8-7.7) Lymphocytes # (Auto) 1.7 x10^3/uL (1.0-4.8) Monocytes # (Auto) 0.3 x10^3/uL (0.0-1.1) Eosinophils # (Auto) 0.0 x10^3/uL (0.0-0.7) Basophils # (Auto) 0.0 x10^3/uL (0.0-0.2) Prothrombin Time 16.3 SEC (11.7-14.0) Prothromb Time International Ratio 1.3 (0.8-1.1) Sodium Level 145 mmol/L (136-145) Potassium Level 3.7 mmol/L (3.5-5.1) Chloride Level 107 mmol/L (98-107) Carbon Dioxide Level 15 mmol/L (21-32) Anion Gap 23 (6-14) Blood Urea Nitrogen 62 mg/dL (7-20) Creatinine 1.2 mg/dL (0.6-1.0) Estimated GFR (Cockcroft-Gault) 45.2 BUN/Creatinine Ratio 52 (6-20) Glucose Level 281 mg/dL (70-99) Calcium Level 8.4 mg/dL (8.5-10.1) Magnesium Level 1.9 mg/dL (1.8-2.4) Total Bilirubin 0.1 mg/dL (0.2-1.0) Aspartate Amino Transf (AST/SGOT) 9 U/L (15-37) Alanine Aminotransferase (ALT/SGPT) 17 U/L (14-59) Alkaline Phosphatase 21 U/L (46-116) Troponin I High Sensitivity 45 ng/L (4-50) FP-Rul-M-Type Natriuretic Peptide 572 pg/mL (0-124) Total Protein 4.9 g/dL (6.4-8.2) Albumin 2.2 g/dL (3.4-5.0) Albumin/Globulin Ratio 0.8 (1.0-1.7) Lipase 142 U/L (73-393) Ethyl Alcohol Level < 10 mg/dL (0-10) Stool Occult Blood Positive (NEG) SARS-CoV-2 RNA (SINDY) Negative (Negative) SARS-CoV-2 Antigen (Rapid) Negative (NEGATIVE) Urine Collection Type Unknown Urine Color Yellow Urine Clarity Clear Urine pH 6.0 (<5.0-8.0) Urine Specific [place] >=1.030 (1.000-1.030) Urine Protein Negative mg/dL (NEG-TRACE) Urine Glucose (UA) Negative mg/dL (NEG) Urine Ketones (Stick) Negative mg/dL (NEG) Urine Blood Large (NEG) Urine Nitrite Negative (NEG) Urine Bilirubin Negative (NEG) Urine Urobilinogen Dipstick 0.2 mg/dL (0.2 mg/dL) Urine Leukocyte Esterase Negative (NEG) Urine RBC 1-2 /HPF (0-2) Urine WBC 1-4 /HPF (0-4) Urine Squamous Epithelial Cells Few /LPF Urine Bacteria Few /HPF (0-FEW) Urine Opiates Screen Neg (NEG) Urine Methadone Screen Neg (NEG) Urine Barbiturates Neg (NEG) Urine Phencyclidine Screen Neg (NEG) Urine Amphetamine/Methamphetamine Neg (NEG) Urine Benzodiazepines Screen Neg (NEG) Urine Cocaine Screen Neg (NEG) Urine Cannabinoids Screen Neg (NEG) Urine Ethyl Alcohol Neg (NEG) Test 03/14/21 22:05 03/15/21 00:34 03/15/21 00:45 03/15/21 06:10 Hemoglobin 11.3 g/dL (12.0-15.5) 9.1 g/dL (12.0-15.5) Hematocrit 33.7 % (36.0-47.0) 26.2 % (36.0-47.0) Mean Corpuscular Hemoglobin Concent 33 g/dL (31-37) 35 g/dL (31-37) Glucose (Fingerstick) 116 mg/dL (70-99) O2 Saturation 99 % (92-99) Arterial Blood pH 7.32 (7.35-7.45) Arterial Blood pCO2 at Patient Temp 34 mmHg (35-46) Arterial Blood pO2 at Patient Temp 207 mmHg (65-108) Arterial Blood HCO3 17 mmol/L (21-28) Arterial Blood Base Excess -8 mmol/L (-3-3) FiO2 50 White Blood Count 8.7 x10^3/uL (4.0-11.0) Red Blood Count 3.05 x10^6/uL (3.50-5.40) Mean Corpuscular Volume 86 fL (79-100) Mean Corpuscular Hemoglobin 30 pg (25-35) Red Cell Distribution Width 15.6 % (11.5-14.5) Platelet Count 123 x10^3/uL (140-400) Neutrophils (%) (Auto) 72 % (31-73) Lymphocytes (%) (Auto) 19 % (24-48) Monocytes (%) (Auto) 8 % (0-9) Eosinophils (%) (Auto) 0 % (0-3) Basophils (%) (Auto) 0 % (0-3) Neutrophils # (Auto) 6.3 x10^3/uL (1.8-7.7) Lymphocytes # (Auto) 1.7 x10^3/uL (1.0-4.8) Monocytes # (Auto) 0.7 x10^3/uL (0.0-1.1) Eosinophils # (Auto) 0.0 x10^3/uL (0.0-0.7) Basophils # (Auto) 0.0 x10^3/uL (0.0-0.2) Sodium Level 145 mmol/L (136-145) Potassium Level 3.4 mmol/L (3.5-5.1) Chloride Level 113 mmol/L (98-107) Carbon Dioxide Level 24 mmol/L (21-32) Anion Gap 8 (6-14) Blood Urea Nitrogen 45 mg/dL (7-20) Creatinine 0.7 mg/dL (0.6-1.0) Estimated GFR (Cockcroft-Gault) 84.2 Glucose Level 80 mg/dL (70-99) Calcium Level 7.0 mg/dL (8.5-10.1) Test 03/15/21 11:24 Hemoglobin 8.5 g/dL (12.0-15.5) Hematocrit 24.5 % (36.0-47.0) Mean Corpuscular Hemoglobin Concent 35 g/dL (31-37) Medications Active Scripts Medications Dose Route/Sig Max Daily Dose Days Date Category Pantoprazole Sodium 40 Mg Tablet.dr 1 Tab PO DAILY 12/03/16 Reported Cymbalta (Duloxetine Hcl) 20 Mg Capsule.dr Unknown Dose PO DAILY 12/03/16 Reported Lisinopril 10 Mg Tablet 1 Tab PO DAILY 12/03/16 Reported Anastrozole 1 Mg Tablet 1 Tab PO DAILY 12/03/16 Reported Pantoprazole Sodium 40 Mg Tablet.dr 40 Mg PO DAILY 12/27/15 Reported Impression . Full note dictated Acute blood loss anemia Hemodynamically stable We will proceed with extubation Discussed with NASIM IBARRA MD Mar 15, 2021 13:12
--- NOTE | 2021-03-15 14:02 | NUR ---
Patient found extubated on 2L NC. RN Chuy extubated patient. RT not present for extubation.
--- NOTE | 2021-03-15 20:20 | PDOC2 ---
CONSULT Date of Consult Date of Consult DATE: 03/15/21 TIME: 20:12 Reason for Consult Reason for Consult: gastric ulcer bleeding Referring Physician Referring Physician: Dr. Anders Identification/Chief Complaint Chief Complaint sore throat Source Source: Chart review, Patient History of Present Illness Reason for Visit: 65 yo F with c/o UGI bleed. Pt succesfully underwent coil embolization. Pt with c/o sore throat. Past Medical History Cardiovascular: No pertinent hx Pulmonary: No pertinent hx CENTRAL NERVOUS SYSTEM: Other GI: Peptic Ulcer disease Heme/Onc: No pertinent hx Hepatobiliary: No pertinent hx Psych: No pertinent hx Musculoskeletal: Other Rheumatologic: No pertinent hx, Fibromyalgia Infectious disease: No pertinent hx ENT: No pertinent hx Renal/: No pertinent hx Endocrine: No pertinent hx Dermatology: No pertinent hx Past Surgical History Past Surgical History: Breast Biopsy, Mastectomy Family History Family History: Cancer, Heart Disease Social History ALCOHOL: occassional Drugs: None Lives: with Family Current Problem List Problem List Problems Medical Problems: (1) GI bleeding Status: Acute Current Medications Current Medications Current Medications Pantoprazole Sodium (PROTONIX VIAL for IV PUSH) 40 mg 1X ONCE IVP Last administered on 03/14/21at 17:30; Start 03/14/21 at 17:30; Stop 03/14/21 at 17:31; Status DC Pantoprazole Sodium 80 mg/ Sodium Chloride 100 ml @ 10 mls/hr Q10H IV Last administered on 03/15/21at 16:08; Start 03/14/21 at 18:00; Stop 03/15/21 at 17:59; Status DC Ceftriaxone Sodium (Rocephin) 1 gm 1X ONCE IVP Last administered on 03/14/21at 17:30; Start 03/14/21 at 17:30; Stop 03/14/21 at 17:31; Status DC Iohexol (Omnipaque 300 Mg/ml) 75 ml 1X ONCE IV ; Start 03/14/21 at 18:00; Stop 03/14/21 at 18:01; Status DC Info (CONTRAST GIVEN -- Rx MONITORING) 1 each PRN DAILY PRN MC SEE COMMENTS; Start 03/14/21 at 18:00; Stop 03/15/21 at 10:15; Status DC Sodium Chloride 1,000 ml @ 1,000 mls/hr 1X ONCE IV Last administered on 03/14/21at 17:10; Start 03/14/21 at 18:15; Stop 03/14/21 at 19:14; Status DC Sodium Chloride 1,000 ml @ 1,000 mls/hr 1X ONCE IV Last administered on 03/14/21at 17:30; Start 03/14/21 at 18:15; Stop 03/14/21 at 19:14; Status DC Ondansetron HCl (Zofran) 4 mg PRN Q8HRS PRN IVP NAUSEA/VOMITING; Start 03/14/21 at 18:15; Stop 03/15/21 at 18:14; Status DC Morphine Sulfate (Morphine Sulfate) 4 mg PRN Q2HR PRN IVP PAIN; Start 03/14/21 at 18:15; Stop 03/15/21 at 04:27; Status DC Sodium Chloride 1,000 ml @ 100 mls/hr Q10H IV Last administered on 03/15/21at 14:15; Start 03/14/21 at 18:15; Stop 03/15/21 at 18:14; Status DC Acetaminophen (Tylenol) 650 mg PRN Q4HRS PRN PO FEVER > 100.3'F; Start 03/14/21 at 18:15; Stop 03/15/21 at 18:14; Status DC Iohexol (Omnipaque 350 Mg/ml) 90 ml 1X ONCE IV Last administered on 03/14/21at 18:23; Start 03/14/21 at 18:30; Stop 03/14/21 at 18:31; Status DC Info (CONTRAST GIVEN -- Rx MONITORING) 1 each PRN DAILY PRN MC SEE COMMENTS; Start 03/14/21 at 18:30; Stop 03/15/21 at 10:15; Status DC Epinephrine HCl (EPINEPHrine SYRINGE) 1 mg STK-MED ONCE .ROUTE ; Start 03/14/21 at 20:49; Stop 03/14/21 at 20:49; Status DC Midazolam HCl (Versed) 5 mg STK-MED ONCE .ROUTE ; Start 03/14/21 at 21:13; Stop 03/14/21 at 21:13; Status DC Propofol 100 ml @ As Directed STK-MED ONCE IV ; Start 03/14/21 at 21:14; Stop 03/14/21 at 21:14; Status DC Fentanyl Citrate 30 ml @ 0 mls/hr CONT PRN IV SEE PROTOCOL Last administered on 03/15/21at 03:49; Start 03/14/21 at 22:00; Stop 03/15/21 at 05:00; Status DC Propofol 100 ml @ 1.77 mls/hr CONT PRN IV PER PROTOCOL Last administered on 03/15/21at 09:16; Start 03/14/21 at 22:00 Midazolam HCl (Versed) 2 mg PRN 1X PRN IVP VENT INDUCTION Last administered on 03/14/21at 22:15; Start 03/14/21 at 22:00; Stop 03/14/21 at 22:18; Status DC Fentanyl Citrate (Fentanyl 2ml Vial) 100 mcg STK-MED ONCE .ROUTE ; Start 03/14/21 at 23:23; Stop 03/14/21 at 23:23; Status DC Sodium Chloride (NORMAL SALINE FLUSH for STERILE FIELD) 10 ml STK-MED ONCE .ROUTE ; Start 03/14/21 at 23:39; Stop 03/14/21 at 23:39; Status DC Sodium Chloride (NORMAL SALINE FLUSH for STERILE FIELD) 10 ml STK-MED ONCE .ROUTE ; Start 03/14/21 at 23:41; Stop 03/14/21 at 23:41; Status DC Midazolam HCl (Versed) 2 mg 1X ONCE IV Last administered on 03/15/21at 01:23; Start 03/15/21 at 01:30; Stop 03/15/21 at 01:31; Status DC Fentanyl Citrate (Fentanyl 2ml Vial) 100 mcg 1X ONCE IVP Last administered on 03/15/21at 01:26; Start 03/15/21 at 00:00; Stop 03/15/21 at 01:31; Status DC Fentanyl Citrate 55 ml @ 0 mls/hr CONT PRN PRN IV PAIN CONTROL Last administe red on 03/15/21at 04:37; Start 03/15/21 at 04:30 Iohexol (Omnipaque 300 Mg/ml) 100 ml STK-MED ONCE .ROUTE ; Start 03/15/21 at 08:38; Stop 03/15/21 at 08:39; Status DC Heparin Sodium/ Sodium Chloride 1,500 ml @ As Directed STK-MED ONCE .ROUTE ; Start 03/15/21 at 08:38; Stop 03/15/21 at 08:39; Status DC Lidocaine HCl (Buffered Lidocaine 1%) 3 ml STK-MED ONCE .ROUTE ; Start 03/15/21 at 08:39; Stop 03/15/21 at 08:39; Status DC Heparin Sodium/ Sodium Chloride (HEPARIN for ARTERIAL LINE FLUSH) 2,000 unit 1X ONCE IART Last administered on 03/15/21at 10:30; Start 03/15/21 at 10:15; Stop 03/15/21 at 10:16; Status DC Heparin Sodium/ Sodium Chloride (HEPARIN for ARTERIAL LINE FLUSH) 1,000 unit 1X ONCE IART Last administered on 03/15/21at 10:30; Start 03/15/21 at 10:15; Stop 03/15/21 at 10:16; Status DC Lidocaine HCl (Buffered Lidocaine 1%) 4 ml 1X ONCE IJ Last administered on 03/15/21at 10:30; Start 03/15/21 at 10:15; Stop 03/15/21 at 10:16; Status DC Iohexol (Omnipaque 300 Mg/ml) 100 ml 1X ONCE IART Last administered on at 10:30; Start 03/15/21 at 10:15; Stop 03/15/21 at 10:16; Status DC Info (CONTRAST GIVEN -- Rx MONITORING) 1 each PRN DAILY PRN MC SEE COMMENTS; Start 03/15/21 at 10:30; Stop 03/17/21 at 10:29 Etomidate (Amidate) 20 mg STK-MED ONCE IV ; Start 03/14/21 at 22:00; Stop 03/15/21 at 13:06; Status DC Succinylcholine Chloride (Anectine) 200 mg STK-MED ONCE .ROUTE ; Start 03/14/21 at 22:00; Stop 03/15/21 at 13:06; Status DC Propofol (Diprivan) 400 mg STK-MED ONCE IV ; Start 03/14/21 at 22:00; Stop 03/15/21 at 13:06; Status DC Active Scripts Active Reported Pantoprazole Sodium 40 Mg Tablet. 1 Tab PO DAILY Cymbalta (Duloxetine Hcl) 20 Mg Capsule. Unknown Dose PO DAILY Lisinopril 10 Mg Tablet 1 Tab PO DAILY Anastrozole 1 Mg Tablet 1 Tab PO DAILY Pantoprazole Sodium 40 Mg Tablet. 40 Mg PO DAILY Allergies Allergies: Coded Allergies: No Known Drug Allergies (Unverified , 03/14/21) ROS HEENT: YES: Sore Throat Physical Exam General: Alert, Cooperative, No acute distress HEENT: Atraumatic Lungs: Normal air movement Abdomen: Soft, No tenderness Extremities: No clubbing, No cyanosis Skin: No rashes, No breakdown Neuro: Normal speech, Sensation intact Vitals VITALS Vital Signs Date Time Temp Pulse Resp B/P (MAP) Pulse Ox O2 Delivery O2 Flow Rate FiO2 03/15/21 15:18 82 19 114/61 (78) Nasal Cannula 2.0 03/15/21 14:18 99 03/15/21 12:00 98.7 98.7 Labs Labs Laboratory Tests Test 03/14/21 17:05 03/14/21 17:41 03/14/21 18:01 03/14/21 19:52 White Blood Count 8.1 x10^3/uL (4.0-11.0) Red Blood Count 1.72 x10^6/uL (3.50-5.40) Hemoglobin 5.4 g/dL (12.0-15.5) Hematocrit 16.3 % (36.0-47.0) Mean Corpuscular Volume 95 fL (79-100) Mean Corpuscular Hemoglobin 31 pg (25-35) Mean Corpuscular Hemoglobin Concent 33 g/dL (31-37) Red Cell Distribution Width 13.8 % (11.5-14.5) Platelet Count 388 x10^3/uL (140-400) Neutrophils (%) (Auto) 74 % (31-73) Lymphocytes (%) (Auto) 22 % (24-48) Monocytes (%) (Auto) 4 % (0-9) Eosinophils (%) (Auto) 0 % (0-3) Basophils (%) (Auto) 1 % (0-3) Neutrophils # (Auto) 6.0 x10^3/uL (1.8-7.7) Lymphocytes # (Auto) 1.7 x10^3/uL (1.0-4.8) Monocytes # (Auto) 0.3 x10^3/uL (0.0-1.1) Eosinophils # (Auto) 0.0 x10^3/uL (0.0-0.7) Basophils # (Auto) 0.0 x10^3/uL (0.0-0.2) Prothrombin Time 16.3 SEC (11.7-14.0) Prothromb Time International Ratio 1.3 (0.8-1.1) Sodium Level 145 mmol/L (136-145) Potassium Level 3.7 mmol/L (3.5-5.1) Chloride Level 107 mmol/L (98-107) Carbon Dioxide Level 15 mmol/L (21-32) Anion Gap 23 (6-14) Blood Urea Nitrogen 62 mg/dL (7-20) Creatinine 1.2 mg/dL (0.6-1.0) Estimated GFR (Cockcroft-Gault) 45.2 BUN/Creatinine Ratio 52 (6-20) Glucose Level 281 mg/dL (70-99) Calcium Level 8.4 mg/dL (8.5-10.1) Magnesium Level 1.9 mg/dL (1.8-2.4) Total Bilirubin 0.1 mg/dL (0.2-1.0) Aspartate Amino Transf (AST/SGOT) 9 U/L (15-37) Alanine Aminotransferase (ALT/SGPT) 17 U/L (14-59) Alkaline Phosphatase 21 U/L (46-116) Troponin I High Sensitivity 45 ng/L (4-50) HW-Xrz-D-Type Natriuretic Peptide 572 pg/mL (0-124) Total Protein 4.9 g/dL (6.4-8.2) Albumin 2.2 g/dL (3.4-5.0) Albumin/Globulin Ratio 0.8 (1.0-1.7) Lipase 142 U/L (73-393) Ethyl Alcohol Level < 10 mg/dL (0-10) Stool Occult Blood Positive (NEG) SARS-CoV-2 RNA (SINDY) Negative (Negative) SARS-CoV-2 Antigen (Rapid) Negative (NEGATIVE) Urine Collection Type Unknown Urine Color Yellow Urine Clarity Clear Urine pH 6.0 (<5.0-8.0) Urine Specific [place] >=1.030 (1.000-1.030) Urine Protein Negative mg/dL (NEG-TRACE) Urine Glucose (UA) Negative mg/dL (NEG) Urine Ketones (Stick) Negative mg/dL (NEG) Urine Blood Large (NEG) Urine Nitrite Negative (NEG) Urine Bilirubin Negative (NEG) Urine Urobilinogen Dipstick 0.2 mg/dL (0.2 mg/dL) Urine Leukocyte Esterase Negative (NEG) Urine RBC 1-2 /HPF (0-2) Urine WBC 1-4 /HPF (0-4) Urine Squamous Epithelial Cells Few /LPF Urine Bacteria Few /HPF (0-FEW) Urine Opiates Screen Neg (NEG) Urine Methadone Screen Neg (NEG) Urine Barbiturates Neg (NEG) Urine Phencyclidine Screen Neg (NEG) Urine Amphetamine/Methamphetamine Neg (NEG) Urine Benzodiazepines Screen Neg (NEG) Urine Cocaine Screen Neg (NEG) Urine Cannabinoids Screen Neg (NEG) Urine Ethyl Alcohol Neg (NEG) Test 03/14/21 22:05 03/15/21 00:34 03/15/21 00:45 03/15/21 06:10 Hemoglobin 11.3 g/dL (12.0-15.5) 9.1 g/dL (12.0-15.5) Hematocrit 33.7 % (36.0-47.0) 26.2 % (36.0-47.0) Mean Corpuscular Hemoglobin Concent 33 g/dL (31-37) 35 g/dL (31-37) Glucose (Fingerstick) 116 mg/dL (70-99) O2 Saturation 99 % (92-99) Arterial Blood pH 7.32 (7.35-7.45) Arterial Blood pCO2 at Patient Temp 34 mmHg (35-46) Arterial Blood pO2 at Patient Temp 207 mmHg (65-108) Arterial Blood HCO3 17 mmol/L (21-28) Arterial Blood Base Excess -8 mmol/L (-3-3) FiO2 50 White Blood Count 8.7 x10^3/uL (4.0-11.0) Red Blood Count 3.05 x10^6/uL (3.50-5.40) Mean Corpuscular Volume 86 fL (79-100) Mean Corpuscular Hemoglobin 30 pg (25-35) Red Cell Distribution Width 15.6 % (11.5-14.5) Platelet Count 123 x10^3/uL (140-400) Neutrophils (%) (Auto) 72 % (31-73) Lymphocytes (%) (Auto) 19 % (24-48) Monocytes (%) (Auto) 8 % (0-9) Eosinophils (%) (Auto) 0 % (0-3) Basophils (%) (Auto) 0 % (0-3) Neutrophils # (Auto) 6.3 x10^3/uL (1.8-7.7) Lymphocytes # (Auto) 1.7 x10^3/uL (1.0-4.8) Monocytes # (Auto) 0.7 x10^3/uL (0.0-1.1) Eosinophils # (Auto) 0.0 x10^3/uL (0.0-0.7) Basophils # (Auto) 0.0 x10^3/uL (0.0-0.2) Sodium Level 145 mmol/L (136-145) Potassium Level 3.4 mmol/L (3.5-5.1) Chloride Level 113 mmol/L (98-107) Carbon Dioxide Level 24 mmol/L (21-32) Anion Gap 8 (6-14) Blood Urea Nitrogen 45 mg/dL (7-20) Creatinine 0.7 mg/dL (0.6-1.0) Estimated GFR (Cockcroft-Gault) 84.2 Glucose Level 80 mg/dL (70-99) Calcium Level 7.0 mg/dL (8.5-10.1) Test 03/15/21 11:24 Hemoglobin 8.5 g/dL (12.0-15.5) Hematocrit 24.5 % (36.0-47.0) Mean Corpuscular Hemoglobin Concent 35 g/dL (31-37) Laboratory Tests Test 03/14/21 22:05 03/15/21 00:34 03/15/21 00:45 03/15/21 06:10 Hemoglobin 11.3 g/dL (12.0-15.5) 9.1 g/dL (12.0-15.5) Hematocrit 33.7 % (36.0-47.0) 26.2 % (36.0-47.0) Mean Corpuscular Hemoglobin Concent 33 g/dL (31-37) 35 g/dL (31-37) Glucose (Fingerstick) 116 mg/dL (70-99) O2 Saturation 99 % (92-99) Arterial Blood pH 7.32 (7.35-7.45) Arterial Blood pCO2 at Patient Temp 34 mmHg (35-46) Arterial Blood pO2 at Patient Temp 207 mmHg (65-108) Arterial Blood HCO3 17 mmol/L (21-28) Arterial Blood Base Excess -8 mmol/L (-3-3) FiO2 50 White Blood Count 8.7 x10^3/uL (4.0-11.0) Red Blood Count 3.05 x10^6/uL (3.50-5.40) Mean Corpuscular Volume 86 fL (79-100) Mean Corpuscular Hemoglobin 30 pg (25-35) Red Cell Distribution Width 15.6 % (11.5-14.5) Platelet Count 123 x10^3/uL (140-400) Neutrophils (%) (Auto) 72 % (31-73) Lymphocytes (%) (Auto) 19 % (24-48) Monocytes (%) (Auto) 8 % (0-9) Eosinophils (%) (Auto) 0 % (0-3) Basophils (%) (Auto) 0 % (0-3) Neutrophils # (Auto) 6.3 x10^3/uL (1.8-7.7) Lymphocytes # (Auto) 1.7 x10^3/uL (1.0-4.8) Monocytes # (Auto) 0.7 x10^3/uL (0.0-1.1) Eosinophils # (Auto) 0.0 x10^3/uL (0.0-0.7) Basophils # (Auto) 0.0 x10^3/uL (0.0-0.2) Sodium Level 145 mmol/L (136-145) Potassium Level 3.4 mmol/L (3.5-5.1) Chloride Level 113 mmol/L (98-107) Carbon Dioxide Level 24 mmol/L (21-32) Anion Gap 8 (6-14) Blood Urea Nitrogen 45 mg/dL (7-20) Creatinine 0.7 mg/dL (0.6-1.0) Estimated GFR (Cockcroft-Gault) 84.2 Glucose Level 80 mg/dL (70-99) Calcium Level 7.0 mg/dL (8.5-10.1) Test 03/15/21 11:24 Hemoglobin 8.5 g/dL (12.0-15.5) Hematocrit 24.5 % (36.0-47.0) Mean Corpuscular Hemoglobin Concent 35 g/dL (31-37) Assessment/Plan Assessment/Plan UGI bleeding, appears stable agree with supportive care Thanks for consult! GABO JOLLY MD Mar 15, 2021 20:20
--- NOTE | 2021-03-15 22:14 | CONS ---
DATE OF CONSULTATION: 03/15/2021 ATTENDING PHYSICIAN: Theron Anders MD REASON FOR CONSULTATION: The patient is seen in pulmonary consultation at the request of Dr. Anders for vent management. HISTORY OF PRESENT ILLNESS: The patient was seen in the Emergency Department, she presented with a GI bleed. She was seen by Dr. Gomez, underwent EGD for acute blood loss anemia. Postoperatively, it was felt that the blood loss anemia was due to duodenal ulcer with adherent clot. He was unable to control the area endoscopically. The patient subsequently was seen by interventional radiologist. Underwent coiling of vessel. She was in the Emergency Department. As a result of the ICU being full, I went to see her there. She had been stable. There was no evidence of hypotension. She was sedated. She was on FiO2 of 30%. I was asked to see her in consultation for further evaluation and management. I reviewed the current documentation. There was an empiric embolization to the GDA to help minimize chances of catastrophically bleeding. PAST MEDICAL HISTORY: Otherwise remarkable for peptic ulcer disease, breast cancer. She has had previous bilateral mastectomy, apparently she is currently undergoing chemotherapy. PAST SURGICAL HISTORY: . MEDICATIONS: List was reviewed. ALLERGIES: No known drug allergies. SOCIAL HISTORY: She is a nonsmoker. No history of alcoholism or drug use. FAMILY HISTORY: Noncontributory in this case. REVIEW OF SYSTEMS: Unobtainable secondary to the patient's condition. PHYSICAL EXAMINATION: GENERAL: Once again, the patient has been hemodynamically stable. VITAL SIGNS: Stable. O2 saturation was greater than 92%. HEENT: Eyes: The sclerae were nonicteric. NECK: Jugular venous distention was not elevated. No lymphadenopathy. CHEST: Full expansion. LUNGS: Adequate flow with no wheezes. CARDIOVASCULAR: Regular rate and rhythm with S1, S2, no S3. ABDOMEN: Soft. EXTREMITIES: No clubbing, cyanosis or edema. NEUROLOGIC: The patient was sedated. LABORATORY DATA: Arterial blood gas earlier today, pH of 7.32, pCO2 of 34, and pO2 of 207. Hemoglobin upon admission was 5.4. She has been transfused. Her current hemoglobin of 8.5 and hematocrit 24. Electrolytes were noted. BUN was slightly elevated. Creatinine was slightly elevated. INR was 1.3. Toxicology screen was negative. Serology for SARS-CoV-2 was negative. IMAGING: Chest x-ray revealed basilar infiltrates, basilar atelectasis. A CT angiogram of the abdomen and pelvis revealed acute findings of pancreatitis. No evidence of arterial extravasation. IMPRESSION: 1. Acute blood loss anemia. 2. Status post esophagogastroduodenoscopy revealing duodenal ulcer with adherent clot. 3. Status post empiric embolization of gastroduodenal artery. 4. History of breast cancer. 5. Status post bilateral mastectomy. PLAN: 1. Discussed with RN, we will discontinue sedation and extubate. 2. Monitor H and H. 3. Follow GI input. 4. Avoid NSAIDs. I do appreciate the privilege in sharing in the patient's care. Total cumulative critical care time of 50 minutes. KAYLIE/WAQAR/GODFREY DR: Brina TID: [id number]
[2021-03-15] MEDS: fentaNYL PF VIAL 100 MCG/2 ML VIAL IVP PRN (23:38)
[2021-03-16 02:44] VITALS: BP 109/57
[2021-03-16 07:00] VITALS: BP 110/49
[2021-03-16] MEDS: fentaNYL PF VIAL 100 MCG/2 ML VIAL IVP PRN ×2 (08:26→21:35)
--- NOTE | 2021-03-16 08:41 | EKG ---
[facility] [address] [place] [address] Test Date: 2021-03-14 Test Time: 17:07:44 Pat Name: THEE AWAD Department: Room: 526 Gender: F Mfts: : 1955 Requested By: ARLENE JAEGER Order Number: [id number] Reading MD: You Telles Measurements Intervals [place] Rate: 101 P: 90 HI: 134 QRS: 74 QRSD: 72 T: 43 QT: 358 QTc: 465 Interpretive Statements SINUS TACHYCARDIA Electronically Signed On 03-16-2021 14:07:21 DIRECTOR OF FIELD SERVICE by You Telles
--- NOTE | 2021-03-16 09:23 | PDOC ---
PULMONARY PROGRESS NOTES DATE: 03/16/21 TIME: 09:23 Subjective Not sure of air, normally does not wear oxygen at home Vitals Vital Signs Date Time Temp Pulse Resp B/P (MAP) Pulse Ox O2 Delivery O2 Flow Rate FiO2 03/16/21 08:26 19 93 Nasal Cannula 2.0 03/16/21 07:00 99.6 81 110/49 (69) 99.6 General: Alert, No acute distress Lungs: Other Cardiovascular: S1 Abdomen: Soft Extremities: No Edema Labs Laboratory Tests Test 03/14/21 17:05 03/14/21 17:41 03/14/21 18:01 03/14/21 19:52 White Blood Count 8.1 x10^3/uL (4.0-11.0) Red Blood Count 1.72 x10^6/uL (3.50-5.40) Hemoglobin 5.4 g/dL (12.0-15.5) Hematocrit 16.3 % (36.0-47.0) Mean Corpuscular Volume 95 fL (79-100) Mean Corpuscular Hemoglobin 31 pg (25-35) Mean Corpuscular Hemoglobin Concent 33 g/dL (31-37) Red Cell Distribution Width 13.8 % (11.5-14.5) Platelet Count 388 x10^3/uL (140-400) Neutrophils (%) (Auto) 74 % (31-73) Lymphocytes (%) (Auto) 22 % (24-48) Monocytes (%) (Auto) 4 % (0-9) Eosinophils (%) (Auto) 0 % (0-3) Basophils (%) (Auto) 1 % (0-3) Neutrophils # (Auto) 6.0 x10^3/uL (1.8-7.7) Lymphocytes # (Auto) 1.7 x10^3/uL (1.0-4.8) Monocytes # (Auto) 0.3 x10^3/uL (0.0-1.1) Eosinophils # (Auto) 0.0 x10^3/uL (0.0-0.7) Basophils # (Auto) 0.0 x10^3/uL (0.0-0.2) Prothrombin Time 16.3 SEC (11.7-14.0) Prothromb Time International Ratio 1.3 (0.8-1.1) Sodium Level 145 mmol/L (136-145) Potassium Level 3.7 mmol/L (3.5-5.1) Chloride Level 107 mmol/L (98-107) Carbon Dioxide Level 15 mmol/L (21-32) Anion Gap 23 (6-14) Blood Urea Nitrogen 62 mg/dL (7-20) Creatinine 1.2 mg/dL (0.6-1.0) Estimated GFR (Cockcroft-Gault) 45.2 BUN/Creatinine Ratio 52 (6-20) Glucose Level 281 mg/dL (70-99) Calcium Level 8.4 mg/dL (8.5-10.1) Magnesium Level 1.9 mg/dL (1.8-2.4) Total Bilirubin 0.1 mg/dL (0.2-1.0) Aspartate Amino Transf (AST/SGOT) 9 U/L (15-37) Alanine Aminotransferase (ALT/SGPT) 17 U/L (14-59) Alkaline Phosphatase 21 U/L (46-116) Troponin I High Sensitivity 45 ng/L (4-50) BZ-Znw-Y-Type Natriuretic Peptide 572 pg/mL (0-124) Total Protein 4.9 g/dL (6.4-8.2) Albumin 2.2 g/dL (3.4-5.0) Albumin/Globulin Ratio 0.8 (1.0-1.7) Lipase 142 U/L (73-393) Ethyl Alcohol Level < 10 mg/dL (0-10) Stool Occult Blood Positive (NEG) SARS-CoV-2 RNA (SINDY) Negative (Negative) SARS-CoV-2 Antigen (Rapid) Negative (NEGATIVE) Urine Collection Type Unknown Urine Color Yellow Urine Clarity Clear Urine pH 6.0 (<5.0-8.0) Urine Specific [place] >=1.030 (1.000-1.030) Urine Protein Negative mg/dL (NEG-TRACE) Urine Glucose (UA) Negative mg/dL (NEG) Urine Ketones (Stick) Negative mg/dL (NEG) Urine Blood Large (NEG) Urine Nitrite Negative (NEG) Urine Bilirubin Negative (NEG) Urine Urobilinogen Dipstick 0.2 mg/dL (0.2 mg/dL) Urine Leukocyte Esterase Negative (NEG) Urine RBC 1-2 /HPF (0-2) Urine WBC 1-4 /HPF (0-4) Urine Squamous Epithelial Cells Few /LPF Urine Bacteria Few /HPF (0-FEW) Urine Opiates Screen Neg (NEG) Urine Methadone Screen Neg (NEG) Urine Barbiturates Neg (NEG) Urine Phencyclidine Screen Neg (NEG) Urine Amphetamine/Methamphetamine Neg (NEG) Urine Benzodiazepines Screen Neg (NEG) Urine Cocaine Screen Neg (NEG) Urine Cannabinoids Screen Neg (NEG) Urine Ethyl Alcohol Neg (NEG) Test 03/14/21 22:05 03/15/21 00:34 03/15/21 00:45 03/15/21 06:10 Hemoglobin 11.3 g/dL (12.0-15.5) 9.1 g/dL (12.0-15.5) Hematocrit 33.7 % (36.0-47.0) 26.2 % (36.0-47.0) Mean Corpuscular Hemoglobin Concent 33 g/dL (31-37) 35 g/dL (31-37) Glucose (Fingerstick) 116 mg/dL (70-99) O2 Saturation 99 % (92-99) Arterial Blood pH 7.32 (7.35-7.45) Arterial Blood pCO2 at Patient Temp 34 mmHg (35-46) Arterial Blood pO2 at Patient Temp 207 mmHg (65-108) Arterial Blood HCO3 17 mmol/L (21-28) Arterial Blood Base Excess -8 mmol/L (-3-3) FiO2 50 White Blood Count 8.7 x10^3/uL (4.0-11.0) Red Blood Count 3.05 x10^6/uL (3.50-5.40) Mean Corpuscular Volume 86 fL (79-100) Mean Corpuscular Hemoglobin 30 pg (25-35) Red Cell Distribution Width 15.6 % (11.5-14.5) Platelet Count 123 x10^3/uL (140-400) Neutrophils (%) (Auto) 72 % (31-73) Lymphocytes (%) (Auto) 19 % (24-48) Monocytes (%) (Auto) 8 % (0-9) Eosinophils (%) (Auto) 0 % (0-3) Basophils (%) (Auto) 0 % (0-3) Neutrophils # (Auto) 6.3 x10^3/uL (1.8-7.7) Lymphocytes # (Auto) 1.7 x10^3/uL (1.0-4.8) Monocytes # (Auto) 0.7 x10^3/uL (0.0-1.1) Eosinophils # (Auto) 0.0 x10^3/uL (0.0-0.7) Basophils # (Auto) 0.0 x10^3/uL (0.0-0.2) Sodium Level 145 mmol/L (136-145) Potassium Level 3.4 mmol/L (3.5-5.1) Chloride Level 113 mmol/L (98-107) Carbon Dioxide Level 24 mmol/L (21-32) Anion Gap 8 (6-14) Blood Urea Nitrogen 45 mg/dL (7-20) Creatinine 0.7 mg/dL (0.6-1.0) Estimated GFR (Cockcroft-Gault) 84.2 Glucose Level 80 mg/dL (70-99) Calcium Level 7.0 mg/dL (8.5-10.1) Test 03/15/21 11:24 Hemoglobin 8.5 g/dL (12.0-15.5) Hematocrit 24.5 % (36.0-47.0) Mean Corpuscular Hemoglobin Concent 35 g/dL (31-37) Laboratory Tests Test 03/15/21 11:24 Hemoglobin 8.5 g/dL (12.0-15.5) Hematocrit 24.5 % (36.0-47.0) Mean Corpuscular Hemoglobin Concent 35 g/dL (31-37) Medications Active Scripts Medications Dose Route/Sig Max Daily Dose Days Date Category Pantoprazole Sodium 40 Mg Tablet. 1 Tab PO DAILY 12/03/16 Reported Cymbalta (Duloxetine Hcl) 20 Mg Capsule. Unknown Dose PO DAILY 12/03/16 Reported Lisinopril 10 Mg Tablet 1 Tab PO DAILY 12/03/16 Reported Anastrozole 1 Mg Tablet 1 Tab PO DAILY 12/03/16 Reported Pantoprazole Sodium 40 Mg Tablet.dr 40 Mg PO DAILY 12/27/15 Reported Impression . IMPRESSION: 1. Acute blood loss anemia. 2. Status post esophagogastroduodenoscopy revealing duodenal ulcer with adherent clot. 3. Status post empiric embolization of gastroduodenal artery. 4. History of breast cancer. 5. Status post bilateral mastectomy. Plan . Respiratory status compensated We will sign off Call if needed PLAN: 1. Discussed with RN, we will discontinue sedation and extubate. 2. Monitor H and H. 3. Follow GI input. 4. Avoid NSAIDs. I do appreciate the privilege in sharing in the patient's care. Total cumulative critical care time of 50 minutes. NASIM CRAIG MD Mar 16, 2021 09:23
[2021-03-16 09:32] LABS: HEMATOCRIT 25.1 % (36.0-47.0); HEMOGLOBIN 8.7 g/dL (12.0-15.5); RED BLOOD COUNT 2.92 x10^6/uL (3.50-5.40); RED CELL DISTRIBUTION WIDTH 15.1 % (11.5-14.5); WHITE BLOOD COUNT 8.4 x10^3/uL (4.0-11.0)
--- NOTE | 2021-03-16 09:37 | PDOC ---
Date of Service: DATE: 03/16/21 TIME: 09:29 Subjective: Subjective: Doesn't say much. Says no bleeding. Really needs ice chips. Objective: Objective: D/w nurse - no reports of bleeding. S/p 6 units pRBCs, 4 units FFP. PPI stopped? Vital Signs: Vital Signs Date Time Temp Pulse Resp B/P (MAP) Pulse Ox O2 Delivery O2 Flow Rate FiO2 03/16/21 08:26 19 93 Nasal Cannula 2.0 03/16/21 07:00 99.6 81 110/49 (69) 99.6 Labs: Laboratory Tests Test 03/15/21 11:24 Hemoglobin 8.5 g/dL Hematocrit 24.5 % Mean Corpuscular Hemoglobin Concent 35 g/dL Imaging: EGD 03/14/21 Pre-op dx acute blood loss anemia/melena Post-op dx duodenal ulcer with adherent clot with continued bleeding not amenable to clipping/cautery Plan transfusionsal support PPI therpay IR embolization with continued bleeding and increased surgical risks with cardiomyopathy IR 03/15/21 No active bleed. GDA empirically embolized with multiple coils No immediate complications Will return to ED as ICU has no bed available. ICU nursing is with patient in the ED. PE: GEN: NAD LUNGS: diminished anteriorly, NC 2L HEART: RRR ABD: S/ND/NT NEURO/PSYCH: A & O 3, flat/depressed A/P: Hematemesis/coffee-ground emesis, melena/hematochezia - no recurrence DU w/ clot not amendable to endotherapy s/p IR GDA embolization S/p extubation -- Okay for ice chips per GI (defer any need for [employer] eval to primary/pulm), await recheck of labs, resume PPI. Justicifation of Admission Dx: Justifications for Admission: Justification of Admission Dx: Yes DONNY WYNN Mar 16, 2021 09:37
[2021-03-16] MEDS ORDERED: PANTOPRAZOLE IV PUSH 40 MG VIAL. IVP SCH (09:45)
[2021-03-16 11:00] VITALS: BP 110/54
--- NOTE | 2021-03-16 11:29 | NUR ---
SW following. Discussed with RN, pt from home with , 2L (does not use oxygen at home), NPO (start clears), COVID-19 negative. GI, Pulmonology and Surgery following. RN advised no SW needs at this time. SW will continue to follow.
--- NOTE | 2021-03-16 13:31 | PDOC ---
SURGICAL PROGRESS NOTE DATE: 03/16/21 TIME: 13:30 Subjective denies any further bleeding still some abdominal pain Vital Signs Vital Signs Date Time Temp Pulse Resp B/P (MAP) Pulse Ox O2 Delivery O2 Flow Rate FiO2 03/16/21 11:00 99.0 78 16 110/54 (72) 99 Nasal Cannula 2.0 99.0 I&O Intake and Output 03/16/21 07:00 Intake Total 0 ml Output Total 3300 ml Balance -3300 ml Intake Oral 0 ml Output Urine Total 2800 ml Gastric Drainage Total 250 ml Emesis 250 ml General: Alert, Cooperative Abdomen: Soft Labs Laboratory Tests Test 03/14/21 17:05 03/14/21 17:41 03/14/21 18:01 03/14/21 19:52 White Blood Count 8.1 x10^3/uL (4.0-11.0) Red Blood Count 1.72 x10^6/uL (3.50-5.40) Hemoglobin 5.4 g/dL (12.0-15.5) Hematocrit 16.3 % (36.0-47.0) Mean Corpuscular Volume 95 fL (79-100) Mean Corpuscular Hemoglobin 31 pg (25-35) Mean Corpuscular Hemoglobin Concent 33 g/dL (31-37) Red Cell Distribution Width 13.8 % (11.5-14.5) Platelet Count 388 x10^3/uL (140-400) Neutrophils (%) (Auto) 74 % (31-73) Lymphocytes (%) (Auto) 22 % (24-48) Monocytes (%) (Auto) 4 % (0-9) Eosinophils (%) (Auto) 0 % (0-3) Basophils (%) (Auto) 1 % (0-3) Neutrophils # (Auto) 6.0 x10^3/uL (1.8-7.7) Lymphocytes # (Auto) 1.7 x10^3/uL (1.0-4.8) Monocytes # (Auto) 0.3 x10^3/uL (0.0-1.1) Eosinophils # (Auto) 0.0 x10^3/uL (0.0-0.7) Basophils # (Auto) 0.0 x10^3/uL (0.0-0.2) Prothrombin Time 16.3 SEC (11.7-14.0) Prothromb Time International Ratio 1.3 (0.8-1.1) Sodium Level 145 mmol/L (136-145) Potassium Level 3.7 mmol/L (3.5-5.1) Chloride Level 107 mmol/L (98-107) Carbon Dioxide Level 15 mmol/L (21-32) Anion Gap 23 (6-14) Blood Urea Nitrogen 62 mg/dL (7-20) Creatinine 1.2 mg/dL (0.6-1.0) Estimated GFR (Cockcroft-Gault) 45.2 BUN/Creatinine Ratio 52 (6-20) Glucose Level 281 mg/dL (70-99) Calcium Level 8.4 mg/dL (8.5-10.1) Magnesium Level 1.9 mg/dL (1.8-2.4) Total Bilirubin 0.1 mg/dL (0.2-1.0) Aspartate Amino Transf (AST/SGOT) 9 U/L (15-37) Alanine Aminotransferase (ALT/SGPT) 17 U/L (14-59) Alkaline Phosphatase 21 U/L (46-116) Troponin I High Sensitivity 45 ng/L (4-50) SJ-Nsd-N-Type Natriuretic Peptide 572 pg/mL (0-124) Total Protein 4.9 g/dL (6.4-8.2) Albumin 2.2 g/dL (3.4-5.0) Albumin/Globulin Ratio 0.8 (1.0-1.7) Lipase 142 U/L (73-393) Ethyl Alcohol Level < 10 mg/dL (0-10) Stool Occult Blood Positive (NEG) SARS-CoV-2 RNA (SINDY) Negative (Negative) SARS-CoV-2 Antigen (Rapid) Negative (NEGATIVE) Urine Collection Type Unknown Urine Color Yellow Urine Clarity Clear Urine pH 6.0 (<5.0-8.0) Urine Specific [place] >=1.030 (1.000-1.030) Urine Protein Negative mg/dL (NEG-TRACE) Urine Glucose (UA) Negative mg/dL (NEG) Urine Ketones (Stick) Negative mg/dL (NEG) Urine Blood Large (NEG) Urine Nitrite Negative (NEG) Urine Bilirubin Negative (NEG) Urine Urobilinogen Dipstick 0.2 mg/dL (0.2 mg/dL) Urine Leukocyte Esterase Negative (NEG) Urine RBC 1-2 /HPF (0-2) Urine WBC 1-4 /HPF (0-4) Urine Squamous Epithelial Cells Few /LPF Urine Bacteria Few /HPF (0-FEW) Urine Opiates Screen Neg (NEG) Urine Methadone Screen Neg (NEG) Urine Barbiturates Neg (NEG) Urine Phencyclidine Screen Neg (NEG) Urine Amphetamine/Methamphetamine Neg (NEG) Urine Benzodiazepines Screen Neg (NEG) Urine Cocaine Screen Neg (NEG) Urine Cannabinoids Screen Neg (NEG) Urine Ethyl Alcohol Neg (NEG) Test 03/14/21 22:05 03/15/21 00:34 03/15/21 00:45 03/15/21 06:10 Hemoglobin 11.3 g/dL (12.0-15.5) 9.1 g/dL (12.0-15.5) Hematocrit 33.7 % (36.0-47.0) 26.2 % (36.0-47.0) Mean Corpuscular Hemoglobin Concent 33 g/dL (31-37) 35 g/dL (31-37) Glucose (Fingerstick) 116 mg/dL (70-99) O2 Saturation 99 % (92-99) Arterial Blood pH 7.32 (7.35-7.45) Arterial Blood pCO2 at Patient Temp 34 mmHg (35-46) Arterial Blood pO2 at Patient Temp 207 mmHg (65-108) Arterial Blood HCO3 17 mmol/L (21-28) Arterial Blood Base Excess -8 mmol/L (-3-3) FiO2 50 White Blood Count 8.7 x10^3/uL (4.0-11.0) Red Blood Count 3.05 x10^6/uL (3.50-5.40) Mean Corpuscular Volume 86 fL (79-100) Mean Corpuscular Hemoglobin 30 pg (25-35) Red Cell Distribution Width 15.6 % (11.5-14.5) Platelet Count 123 x10^3/uL (140-400) Neutrophils (%) (Auto) 72 % (31-73) Lymphocytes (%) (Auto) 19 % (24-48) Monocytes (%) (Auto) 8 % (0-9) Eosinophils (%) (Auto) 0 % (0-3) Basophils (%) (Auto) 0 % (0-3) Neutrophils # (Auto) 6.3 x10^3/uL (1.8-7.7) Lymphocytes # (Auto) 1.7 x10^3/uL (1.0-4.8) Monocytes # (Auto) 0.7 x10^3/uL (0.0-1.1) Eosinophils # (Auto) 0.0 x10^3/uL (0.0-0.7) Basophils # (Auto) 0.0 x10^3/uL (0.0-0.2) Sodium Level 145 mmol/L (136-145) Potassium Level 3.4 mmol/L (3.5-5.1) Chloride Level 113 mmol/L (98-107) Carbon Dioxide Level 24 mmol/L (21-32) Anion Gap 8 (6-14) Blood Urea Nitrogen 45 mg/dL (7-20) Creatinine 0.7 mg/dL (0.6-1.0) Estimated GFR (Cockcroft-Gault) 84.2 Glucose Level 80 mg/dL (70-99) Calcium Level 7.0 mg/dL (8.5-10.1) Test 03/15/21 11:24 03/16/21 09:15 Hemoglobin 8.5 g/dL (12.0-15.5) 8.7 g/dL (12.0-15.5) Hematocrit 24.5 % (36.0-47.0) 25.1 % (36.0-47.0) Mean Corpuscular Hemoglobin Concent 35 g/dL (31-37) 35 g/dL (31-37) White Blood Count 8.4 x10^3/uL (4.0-11.0) Red Blood Count 2.92 x10^6/uL (3.50-5.40) Mean Corpuscular Volume 86 fL (79-100) Mean Corpuscular Hemoglobin 30 pg (25-35) Red Cell Distribution Width 15.1 % (11.5-14.5) Platelet Count 160 x10^3/uL (140-400) Laboratory Tests Test 03/16/21 09:15 White Blood Count 8.4 x10^3/uL (4.0-11.0) Red Blood Count 2.92 x10^6/uL (3.50-5.40) Hemoglobin 8.7 g/dL (12.0-15.5) Hematocrit 25.1 % (36.0-47.0) Mean Corpuscular Volume 86 fL (79-100) Mean Corpuscular Hemoglobin 30 pg (25-35) Mean Corpuscular Hemoglobin Concent 35 g/dL (31-37) Red Cell Distribution Width 15.1 % (11.5-14.5) Platelet Count 160 x10^3/uL (140-400) Problem List Problems Medical Problems: (1) GI bleeding Status: Acute Assessment/Plan hgb stable no active bleeding no surgical plans at this point Justicifation of Admission Dx: Justifications for Admission: Justification of Admission Dx: Yes LUISITO VELASCO APRN Mar 16, 2021 13:31
--- NOTE | 2021-03-16 13:36 | RAD ---
03/16/2021 1. Focused mesenteric angiography, celiac artery 2. Selective angiography of the common hepatic artery, gastroduodenal artery, and gastroduodenal ute ry branches 3. Clinical embolization of gastroduodenal duodenal artery, and selective branch Indication: The patient is a 65-year-old female who presented to the emergency room with large amount s of hematemesis. Endoscopy was performed emergently demonstrating a large adherent clot in the proxi mal and second duodenum which was unable to be removed, but had active bleeding surrounding the duode num. Bleeding cannot be controlled endoscopically. Consent: The procedure was explained in its entirety to the patient or the patients designated repres entative by a member of the treatment team, including a discussion of the risks, benefits and commonl y accepted alternatives to the procedure, as well as the expected consequences of no therapy whatsoev er. Discussion of the risks included, but was not limited to, those that are most frequent and thos e that are rare but possibly severe or life-threatening, as well as the possibility of unforeseen com plications. The right groin was prepped and draped using sterile barrier technique. 1% lidocaine was administered for local anesthesia. Ultrasound evaluation demonstrates the right common femoral artery be patent. The artery was accessed under direct ultrasound guidance with micropuncture technique. Reference ultr asound images were saved in the medical record. A 5 [place] vascular sheath was placed. The celiac axi s was selected using a sauce catheter. Angiograms were obtained demonstrating no active extravasation , and essentially normal celiac arterial anatomy. This catheter was advanced to the common hepatic ar january, and angiograms repeated again demonstrating no overt extravasation. The microcatheter was then used to select the gastroduodenal artery as well as a few branches arising from the gastroduodenal ar january, as well as the gastroepiploic artery. Angiograms demonstrated some hyperemia in the duodenum wi thout overt extravasation of contrast. However given clinical picture, the decision was made to empir ically embolize the gastroduodenal artery. This was performed with multiple coils. Embolization was p erformed to stasis. The catheter and sheath removed. Angiograms through the right femoral sheath demo nstrated a puncture site amenable to closure device use. A minx closure device was deployed. No immed iate complications were identified. Sterile dressings were applied. Total fluoroscopy time: 12 minutes Dose area product 227 Gycm2 The patient was sedation on the ventilator during the case. Impression: No active extravasation of contrast was identified to suggest active intraluminal bleed h owever given clinical picture, and patient fragility, empiric Embolization of the gastroduodenal ute ry was performed. Electronically signed by: Pablo Coleman MD (03/16/2021 1:34 PM) [id number]
[2021-03-16 15:00] VITALS: BP 120/62
[2021-03-16 19:00] VITALS: BP 110/50
[2021-03-16 22:58] VITALS: BP 118/67
--- NOTE | 2021-03-17 00:03 | PN ---
DATE: 03/16/2021 DAILY PROGRESS NOTE LOCATION: The patient is in room 526. SUBJECTIVE: The patient is awake and alert. Major complaint today is right lateral rib cage pain as well as some right upper quadrant pain on palpation. She is overall feeling better than she did coming to the hospital. OBJECTIVE: VITAL SIGNS: Stable. She is afebrile. GENERAL: She is awake, alert, and oriented. CHEST: Clear to auscultation and percussion. HEART: Regular rate and rhythm. She does have a right lateral chest wall tenderness and some mild right upper quadrant tenderness on exam. NEUROLOGIC: She is intact. LABORATORY DATA: I did have nursing check another hemoglobin this morning which was not ordered and it is 8.7, so she is stable and hopefully the bleeding has all stopped. She is status post 6 units of packed red blood cells and 4 units of fresh frozen plasma. Somehow PPI therapy was not carried through from the Emergency Room and has been restarted by GI this morning. ASSESSMENT: 1. Status post gastrointestinal bleed, massive due to duodenal ulcer, currently hemodynamically stable. No evidence of further bleeding. 2. History of breast cancer. PLAN: Continue present supportive care. IV PPI and GI following along. Hopefully, will self resolve and she will need to be on lifetime PPI therapy, which was discussed with her today. RUBIO/KEEGAN DR: BRIAN/kiley TID: [id number]
[2021-03-17 03:06] VITALS: BP 127/56
[2021-03-17 07:00] VITALS: BP_SYST 131; BP_SYST 145; BP_DIAS 63; BP_DIAS 69
[2021-03-17 07:35] LABS: HEMOGLOBIN 9.2 g/dL (12.0-15.5); RED BLOOD COUNT 3.09 x10^6/uL (3.50-5.40); RED CELL DISTRIBUTION WIDTH 14.6 % (11.5-14.5); WHITE BLOOD COUNT 6.9 x10^3/uL (4.0-11.0)
--- NOTE | 2021-03-17 09:07 | PDOC ---
Date of Service: DATE: 03/17/21 TIME: 09:04 Subjective: Subjective: Doesn't offer much today either - no bleeding, no pain except in ribs sometimes. Objective: Objective: D/w nurse - tolerating clears and plans to advance diet. Vital Signs: Vital Signs Date Time Temp Pulse Resp B/P (MAP) Pulse Ox O2 Delivery O2 Flow Rate FiO2 03/17/21 07:00 98.4 64 16 131/63 (85) 98 Nasal Cannula 2.0 98.4 Labs: Laboratory Tests Test 03/16/21 09:15 03/17/21 06:40 White Blood Count 8.4 x10^3/uL 6.9 x10^3/uL Red Blood Count 2.92 x10^6/uL 3.09 x10^6/uL Hemoglobin 8.7 g/dL 9.2 g/dL Hematocrit 25.1 % 27.0 % Mean Corpuscular Volume 86 fL 87 fL Mean Corpuscular Hemoglobin 30 pg 30 pg Mean Corpuscular Hemoglobin Concent 35 g/dL 34 g/dL Red Cell Distribution Width 15.1 % 14.6 % Platelet Count 160 x10^3/uL 187 x10^3/uL PE: GEN: NAD LUNGS: CTAB, NC 2L HEART: RRR ABD: S/ND/NT NEURO/PSYCH: A & O 3, quiet, flat A/P: Hematemesis/coffee-ground emesis, melena/hematochezia - resolved DU s/p GDA embolization Anemia - improved -- Hgb improved, no recurrent bleeding. Tolerating clears - plans to advance per nurse. PO PPI - continue senior living. Justicifation of Admission Dx: Justifications for Admission: Justification of Admission Dx: Yes DONNY WYNN Mar 17, 2021 09:07
[2021-03-17] MEDS: fentaNYL PF VIAL 100 MCG/2 ML VIAL IVP PRN (10:05)
[2021-03-17 11:00] VITALS: BP 111/50
--- NOTE | 2021-03-17 12:49 | PDOC ---
LUISITO VELASCO BANKER MASON 03/17/21 1249: SURGICAL PROGRESS NOTE DATE: 03/17/21 TIME: 12:48 Subjective had some liquids some side pain Vital Signs Vital Signs Date Time Temp Pulse Resp B/P (MAP) Pulse Ox O2 Delivery O2 Flow Rate FiO2 03/17/21 11:00 98.3 70 18 111/50 (70) 98 Nasal Cannula 2.0 98.3 I&O Intake and Output 03/17/21 07:00 Output Total 1330 ml Balance -1330 ml Output Urine Total 1330 ml General: Alert, Cooperative Abdomen: Soft Labs Laboratory Tests Test 03/16/21 09:15 03/17/21 06:40 White Blood Count 8.4 x10^3/uL (4.0-11.0) 6.9 x10^3/uL (4.0-11.0) Red Blood Count 2.92 x10^6/uL (3.50-5.40) 3.09 x10^6/uL (3.50-5.40) Hemoglobin 8.7 g/dL (12.0-15.5) 9.2 g/dL (12.0-15.5) Hematocrit 25.1 % (36.0-47.0) 27.0 % (36.0-47.0) Mean Corpuscular Volume 86 fL (79-100) 87 fL (79-100) Mean Corpuscular Hemoglobin 30 pg (25-35) 30 pg (25-35) Mean Corpuscular Hemoglobin Concent 35 g/dL (31-37) 34 g/dL (31-37) Red Cell Distribution Width 15.1 % (11.5-14.5) 14.6 % (11.5-14.5) Platelet Count 160 x10^3/uL (140-400) 187 x10^3/uL (140-400) Laboratory Tests Test 03/17/21 06:40 White Blood Count 6.9 x10^3/uL (4.0-11.0) Red Blood Count 3.09 x10^6/uL (3.50-5.40) Hemoglobin 9.2 g/dL (12.0-15.5) Hematocrit 27.0 % (36.0-47.0) Mean Corpuscular Volume 87 fL (79-100) Mean Corpuscular Hemoglobin 30 pg (25-35) Mean Corpuscular Hemoglobin Concent 34 g/dL (31-37) Red Cell Distribution Width 14.6 % (11.5-14.5) Platelet Count 187 x10^3/uL (140-400) Problem List Problems Medical Problems: (1) GI bleeding Status: Acute Assessment/Plan stable, ulcer management, PPI, as per GI no surgical needs, will sign off Justicifation of Admission Dx: Justifications for Admission: Justification of Admission Dx: Yes GABO JOLLY MD 03/17/21 1357: SURGICAL PROGRESS NOTE Assessment/Plan Pt seen and examined. Agree with Ms. Velasco's note Pt reports doing well, nancy diet abd soft, ND, NTTP OK to works d/c, no surgical plans. LUISITO VELASCO APRN Mar 17, 2021 12:49 GABO JOLLY MD Mar 17, 2021 13:57
[2021-03-17] MEDS ORDERED: PANT40TA77 PO (12:52)
--- NOTE | 2021-03-17 13:00 | NUR ---
SW following. Discussed with RN, discharge order for home with self care. RN removing oxygen from pt to double check as pt does not have oxygen at home. SW will continue to follow.
--- NOTE | 2021-03-17 14:26 | DS ---
DATE OF DISCHARGE: 03/17/2021 PRIMARY DIAGNOSIS: Massive upper gastrointestinal bleed from duodenal ulcer. ADDITIONAL DIAGNOSES: Anemia -- symptomatic, history of breast cancer, hypertension. CHIEF COMPLAINT AND HISTORY OF PRESENT ILLNESS: This 65-year-old female presented to the Emergency Room with coffee-ground emesis, weakness, melena and a hemoglobin in the low 5s. The patient was admitted to the hospital. SUMMARY OF STAY: The patient was transfused a total of 6 units of packed red blood cells, 4 units of fresh frozen plasma, had attempted EGD done in the Emergency Room on admission, which was unable due to the large amount of blood, but could see a clot adherent to a duodenal lesion, was unable to remedy it any further. She did have a CTA of the abdomen showing no evidence of ferocious bleeding. At that point in time, Interventional Radiology followed along with GI. She did stop bleeding and hemoglobin stable for a couple of days prior to discharge. Her hemoglobin on the day of discharge was 9.2 and again, initial hemoglobin was 5.4. She was wanting discharge and it was explained to her in detail that if there are any signs of bleeding, she should return immediately to the Emergency Room. She will maintain on Protonix at the time of discharge, which she was not taking prior and will remain on it for the rest of her life. At some point in the future, she needs to be checked for ____factor. She does have a history of a significant GI bleed in the past in addition. DISPOSITION: The patient is discharged to home. DIET: As tolerated. ACTIVITY: As tolerated. FOLLOWUP: Office in 1 week. DISCHARGE MEDICATIONS: Listed on the med rec been addressed. We will recheck a CBC on followup in a week. Again, it was reemphasized with her the importance of returning to the Emergency Room immediately if any signs of bleeding. CASE DR: Paresh TID: [id number]
--- NOTE | 2021-03-17 17:00 | NUR ---
DISCHARGE INSTRUCTIONS GIVEN TO PATIENT AND SPOUSE AT THE BEDSIDE, QUESTIONS AND CONCERNS ANSWERED, PATIENT AND SPOUSE VERBALIZED UNDERSTANDING OF DISCHARGE INFORMATION INCLUDING TAKING ALL MEDICATIONS INSTRUCTED AND FOLLOWING UP WITH DR. BLANDON IN 1-WEEK.
--- NOTE | 2021-03-17 17:18 | NUR ---
PATIENT LEAVES THE UNIT PER W/C AND ACCOMPANIED BY THIS [employer] MACHINERY ERECTOR, EMOTIONAL SUPPORT GIVEN, FOLLOW UP APPOINTMENTS ENCOURAGED.
[2021-03-18] MEDS ORDERED: PANTOPRAZOLE 40 MG TABLET.DR. PO SCH (07:30)
== END 2021-03-17 17:18 | disposition home or self-care (01) | DRG 327 ==
LOC: ER 17:00 → ED HOLD 18:00 → 5 NORTH 03-15 15:30
PROVIDERS: ADMIT Family Medicine; ATTEND Family Medicine
PROC: 0D998ZZ Drainage of Duodenum, Via Natural or Artificial Opening Endoscopic (ICD-10-PCS; 2021-03-14)
PROC: 30233K1 Transfusion of Nonautologous Frozen Plasma into Peripheral Vein, Percutaneous Approach (ICD-10-PCS; 2021-03-14)
PROC: 30233N1 Transfusion of Nonautologous Red Blood Cells into Peripheral Vein, Percutaneous Approach (ICD-10-PCS; 2021-03-14)
PROC: 5A1935Z Respiratory Ventilation, Less than 24 Consecutive Hours (ICD-10-PCS; principal; 2021-03-14 20:30)
PROC: 04V Lower Arteries, Restriction (ICD-10-PCS; 2021-03-16)
DX: K26.4 Chronic or unspecified duodenal ulcer with hemorrhage (principal); D62 Acute posthemorrhagic anemia; K25.4 Chronic or unspecified gastric ulcer with hemorrhage; R56.9 Unspecified convulsions; T39.395A Adverse effect of other nonsteroidal anti-inflammatory drugs [NSAID], initial encounter; Z85.3 Personal history of malignant neoplasm of breast; Z90.13 Acquired absence of bilateral breasts and nipples; F41.9 Anxiety disorder, unspecified; K21.9 Gastro-esophageal reflux disease without esophagitis; M19.90 Unspecified osteoarthritis, unspecified site; Y92.89 Other specified places as the place of occurrence of the external cause
CPT/HCPCS: 36247; 36248; 36415; 36430; 36600; 37244; 43235; 51702; 71045; 74174; 75726; 76937; 80048; 80053; 80307; 81001; 82274; 82805; 82962; 83690; 83735; 83880; 84484; 85014; 85018; 85025; 85027; 85610; 86850; 86900; 86901; 86920; 86927; 87426; 93005; 94002; C1713; C1760; C1769; C1887; C1892; C1894; C9113; G0269; G0480; J0330; J0696; J1644; J2250; J2704; J3010; J3490; J7030; P9016; P9017; Q9967; U0003; U0005; 99285-25; G0378